=== PATIENT | female | born 1995 | race Caucasian/White ===

== ENCOUNTER 2017-12-02 17:26 | Emergency (ER) | payer SELFPAY ==
[~2017-12-02] VITALS: Ht 149.9 cm; Wt 45.9 kg
[2017-12-02 17:30] VITALS: BP 111/58; TEMP 98
[2017-12-02 18:05] LABS: COLLECTION METHOD CLEAN CATCH
[2017-12-02] MEDS ORDERED: ZOFRAN 4MG T4 MG/TAB PO (18:05)
[2017-12-02 18:09] LABS: BASO % 0.4 % (0.0-2.0); EOS # 0.1 (0.0-0.7); EOS % 1.3 % (0-4.0); GRAN # 2.5 (1.4-6.5); GRAN % 45.6 % (42.2-75.2); HEMATOCRIT 37.5 % (37.0-47.0); LYMPH # 2.4 (1.2-3.4); LYMPH % 43.6 % (20.0-51.0); MEAN CELL VOLUME 88 fl (80.0-100.0); MEAN CORPUSCULAR HEMOGLOBIN 27 pg (27.0-31.0); MEAN CORPUSCULAR HGB CONC 31 g/dl (33.0-37.0); MEAN PLATELET VOLUME 11.7 fl (7.4-10.4); MONO # 0.5 (0.1-0.6); MONO % 8.7 % (1.7-9.3); PLATELET COUNT 235 K/mm3 (130-400); RED BLOOD COUNT 4.26 M/mm3 (4.10-5.30); REDCELL DISTRIBUTION WIDTH-CV 14.3 % (11.5-14.5)
[2017-12-02 18:13] LABS: HEMOGLOBIN 11.6 g/dl (12.5-16.0)
[2017-12-02 18:15] LABS: MUCOUS Present /lpf; PH 5 (5-8); SQUAMOUS EPITHELIAL 0-2 /hpf; URINE APPEARANCE Clear; URINE BACTERIA None Seen /hpf; URINE BILIRUBIN Negative (NEGATIVE); URINE BLOOD Negative (NEGATIVE); URINE COLOR Yellow; URINE GLUCOSE Negative (NEGATIVE); URINE KETONE Negative (NEGATIVE); URINE LEUKOCYTE ESTERASE Negative (NEGATIVE); URINE NITRATE Negative (NEGATIVE); URINE PROTEIN(semi-quant) Negative (NEGATIVE); URINE RBC None Seen /hpf
[2017-12-02 18:18] LABS: CALCIUM 8.8 mg/dL (8.4-10.2); CREATININE, serum 0.64 mg/dL (0.52-1.25); POTASSIUM 4.1 mmol/L (3.4-5.0)
[2017-12-02 18:30] VITALS: PULSE 76
== END 2017-12-02 18:31 | disposition home or self-care (01) ==
LOC: COL.ER 17:26
PROVIDERS: Emergency Medicine
DX: R10.2 Pelvic and perineal pain (principal)

== ENCOUNTER 2018-01-07 01:18 | Emergency (ER) | payer SELFPAY ==
[~2018-01-07] VITALS: Ht 124.5 cm; Wt 47.7 kg
[~2018-01-07 01:18] MED LIST: ZOFRAN 4MG T4 MG/TAB PO
[2018-01-07 01:27] VITALS: BP 108/61; TEMP 98.2
[2018-01-07 02:40] VITALS: PULSE 94
== END 2018-01-07 02:40 | disposition home or self-care (01) ==
LOC: COL.ER 01:18
DX: S61.511A Laceration without foreign body of right wrist, initial encounter (principal); F17.210 Nicotine dependence, cigarettes, uncomplicated; W22.8XXA Striking against or struck by other objects, initial encounter

== ENCOUNTER 2018-04-10 18:05 | Emergency (ER) | payer SELFPAY ==
[~2018-04-10] VITALS: Ht 152.4 cm; Wt 46.8 kg
[2018-04-10 18:08] VITALS: BP 107/55; TEMP 98.3
[2018-04-10] MEDS ORDERED: MULTIPLE VITAMI1 CAP PO (18:14)
[2018-04-10] MEDS ORDERED: PRENATAL (18:14)
[2018-04-10 19:43] VITALS: PULSE 94
== END 2018-04-10 19:43 | disposition home or self-care (01) ==
LOC: COL.ER 18:05
DX: S60.221A Contusion of right hand, initial encounter (principal); W22.01XA Walked into wall, initial encounter; Y92.009 Unspecified place in unspecified non-institutional (private) residence as the place of occurrence of the external cause

== ENCOUNTER 2018-07-18 16:47 | Outpatient (CLI) | payer SELFPAY ==
[~2018-07-18] VITALS: Ht 152.4 cm; Wt 52.3 kg
[2018-07-18 16:42] VITALS: BP 96/54; PULSE 126; TEMP 98.2
[~2018-07-18 16:47] MED LIST changes: +MULTIPLE VITAMI1 CAP PO; +PRENATAL
[2018-07-18 16:50] VITALS: BP 96/54; PULSE 126; TEMP 98.2
[2018-07-18 17:29] LABS: COLLECTION METHOD CLEAN CATCH
[2018-07-18 17:40] VITALS: BP 101/59; PULSE 107
[2018-07-18 17:40] LABS: MUCOUS Present /lpf; PH 6 (5-8); URINE APPEARANCE Hazy; URINE BACTERIA Rare /hpf; URINE BILIRUBIN Negative (NEGATIVE); URINE BLOOD Negative (NEGATIVE); URINE COLOR Yellow; URINE GLUCOSE Negative (NEGATIVE); URINE KETONE Negative (NEGATIVE); URINE LEUKOCYTE ESTERASE 2+ (NEGATIVE); URINE NITRATE Negative (NEGATIVE); URINE PROTEIN(semi-quant) 1+ (NEGATIVE); URINE RBC 0-2 /hpf; URINE UROBILINOGEN >=4.0 mg/dL (NEGATIVE)
[2018-07-18 17:54] VITALS: BP 100/59; PULSE 96
== END 2018-07-18 18:00 | disposition home or self-care (01) ==
LOC: LDRO 16:47 → LDR 16:50 → LDRO 18:00
PROVIDERS: Obstetrics & Gynecology
DX: O26.852 Spotting complicating pregnancy, second trimester (principal); O26.892 Other specified pregnancy related conditions, second trimester; R25.2 Cramp and spasm; Z3A.25 25 weeks gestation of pregnancy
CPT/HCPCS: OP

== ENCOUNTER 2018-08-06 20:21 | Outpatient (CLI) | payer SELFPAY ==
[~2018-08-06] VITALS: Ht 152.4 cm; Wt 50.0 kg
[2018-08-06 21:00] VITALS: BP 104/58; PULSE 96; TEMP 98.6
[2018-08-06 21:30] VITALS: BP 105/63; PULSE 84
[2018-08-06 21:53] LABS: COLLECTION METHOD CLEAN CATCH
[2018-08-06 21:59] LABS: MUCOUS Present /lpf; PH 6 (5-8); SQUAMOUS EPITHELIAL 0-2 /hpf; URINE APPEARANCE Clear; URINE BACTERIA None Seen /hpf; URINE BILIRUBIN Negative (NEGATIVE); URINE BLOOD Negative (NEGATIVE); URINE COLOR Yellow; URINE GLUCOSE Negative (NEGATIVE); URINE KETONE Negative (NEGATIVE); URINE LEUKOCYTE ESTERASE Negative (NEGATIVE); URINE NITRATE Negative (NEGATIVE); URINE PROTEIN(semi-quant) Negative (NEGATIVE); URINE RBC None Seen /hpf; URINE UROBILINOGEN >=4.0 mg/dL (NEGATIVE); URINE WBC 0-2 /hpf
== END 2018-08-06 22:42 | disposition home or self-care (01) ==
LOC: LDRO 20:21
PROVIDERS: Obstetrics & Gynecology
DX: O26.893 Other specified pregnancy related conditions, third trimester (principal); R25.2 Cramp and spasm; Z3A.29 29 weeks gestation of pregnancy

== ENCOUNTER 2018-09-30 16:11 | Outpatient (CLI) | payer SELFPAY ==
[~2018-09-30] VITALS: Ht 152.4 cm; Wt 56.4 kg
[2018-09-30 16:19] VITALS: TEMP 98.1
[2018-09-30 16:25] VITALS: BP 109/63; PULSE 113; TEMP 98.1
--- NOTE | 2018-09-30 16:37 | NUR ---
1620 PATIENT HERE FOR COMPLAINTS OF LOW ABD DISCOMFORT. EFM ON FHT 130 BABY VERY ACTIVE. AND ACCELERATIONS NOTED. NO CONTRACTIONS ON MONITOR OR FELT BY PATIENT, OR PALPATED. SVE /-2. DR HANKS CALLED AND UPDATED ON ALL ABOVE INFORMATION. ORDERS TO DISMISS PATIENT TO HOME IF NO CONTRACTIONS AND REACTIVE FHT.
[2018-09-30 16:52] VITALS: BP 102/61; PULSE 111
--- NOTE | 2018-09-30 16:53 | NUR ---
1057 DR HANKS VIEWED STRIP ORDERS TO DISMISS PATIENT TO HOME. ORDERS TO NOT DO SVE. ALL DISCHARGE INSTRUCTIONS GIVENT TO PATIENT AND MOTHER, VERBAL UNDERSTANDING NOTED. DENIES NEEDS AT THIS TIME.
== END 2018-09-30 16:57 | disposition home or self-care (01) ==
LOC: LDRO 16:11 → LDR 16:20 → LDRO 16:57
DX: O62.9 Abnormality of forces of labor, unspecified (principal); Z3A.37 37 weeks gestation of pregnancy
CPT/HCPCS: OP

== ENCOUNTER 2018-10-04 16:17 | Inpatient (IN) | payer OTHER ==
[~2018-10-04] VITALS: Ht 152.4 cm; Wt 57.3 kg
[2018-10-04] VITALS (16 sets, daily range): BP systolic 102–129; BP diastolic 60–89; PULSE 92–130; TEMP 97.8–98.6
--- NOTE | 2018-10-04 17:00 | NUR ---
1630- Patient presents to unit with complatins on contractions, accompained by her sister. Patient reports her water broke at 1600. Patient does not doctor here. Prenatals requested from physician in [place], patient signed consent. Assesment completed to best knowledge of patient. Amniotrace completed and noted postive. SVE completed and noted /-2. Patient tolerated check. WIll notify physician of arrival on unit, and prepare for admissioni. 1700- Patient admitted Iv started in left hand by Sky Milton RN labs obtained.
[2018-10-04 17:12] LABS: BASO % 0.3 % (0.0-2.0); EOS # 0.1 (0.0-0.7); EOS % 0.6 % (0-4.0); GRAN # 7.3 (1.4-6.5); GRAN % 70.9 % (42.2-75.2); LYMPH # 1.6 (1.2-3.4); LYMPH % 15.7 % (20.0-51.0); MEAN CELL VOLUME 80 fl (80.0-100.0); MEAN CORPUSCULAR HGB CONC 30 g/dl (33.0-37.0); MEAN PLATELET VOLUME 13.3 fl (7.4-10.4); MONO # 1.2 (0.1-0.6); PLATELET COUNT 175 K/mm3 (130-400); RED BLOOD COUNT 4.01 M/mm3 (4.10-5.30); REDCELL DISTRIBUTION WIDTH-CV 17.5 % (11.5-14.5)
[2018-10-04 17:13] LABS: HEMOGLOBIN 9.7 g/dl (12.5-16.0); MEAN CORPUSCULAR HEMOGLOBIN 24 pg (27.0-31.0)
[2018-10-04 17:52] LABS: COLLECTION METHOD CLEAN CATCH
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
[2018-10-04 18:10] LABS: MUCOUS Present /lpf; PH 7 (5-8); URINE APPEARANCE Clear; URINE BACTERIA None Seen /hpf; URINE BILIRUBIN Negative (NEGATIVE); URINE BLOOD Negative (NEGATIVE); URINE COLOR Yellow; URINE GLUCOSE Negative (NEGATIVE); URINE KETONE Negative (NEGATIVE); URINE LEUKOCYTE ESTERASE Trace (NEGATIVE); URINE NITRATE Negative (NEGATIVE); URINE PROTEIN(semi-quant) Negative (NEGATIVE); URINE RBC 0-2 /hpf; URINE UROBILINOGEN >=4.0 mg/dL (NEGATIVE)
[2018-10-04 18:12] LABS: TRICYCLIC ANTIDEPRESS URINE NEGATIVE
--- NOTE | 2018-10-04 18:20 | NUR ---
Report received from NANCY Oreilly. 184: Shen inserted at this time. Pale yellow/clear urine return noted. at bedside SVE 5//-2 per provider. Forebag ruptured with amniohook by with large amount of clear amniotic fluid noted. Pericare provided and pads changed. to remain at nurse's station. Pt repositioned to wedge right position per request. Plan of care explained to pt and educated to let us know if she is starting to feel pressure. Pt verbalizes understanding. 1903: Pt called out stating she was feeling more pressure. SVE 790/0. on unit and updated on SVE and pt feeling pressure. 1912: Pt called out stating she is feeling more pressure. SVE C/+2. at nurse's station and requested for delivery. 1914: at bedside for delivery and pt assisted into footplates. Pt educated to push with next contraction per provider. 1919: Pt pushes with one contraction with spontaneous vaginal delivery of viable female by . to mothers chest where dried and stimulated by nursery RN. Pitocin stopped. Cord clamped X2 and cut by FOB. Care of infant assumed by Sofía CRUZ. 1923: Spontaneous delivery of intact placenta by . Pitocin restarted at 333mus/hr per protocol. Perineum intact. Fundal message by this RN with large clot noted, fundus firm, midline and bleeding minimal. updated on bleeding. Pericare provided, pads changed and ice pack applied. Pt able to reposition self in bed. Epidural catheter removed and bandaid applied. No signs of infection or inflammation noted. Plan of care and safety precautions explained to pt and family who verbalize understanding. Cord stat sent to lab. Call light within reach. Will continue to monitor.
--- NOTE | 2018-10-04 22:00 | NUR ---
Pt ablt to hold legs up bilaterally for 5 seconds and states she needs to use the restroom. Fundus firm, midline and bleeding minimal. Pt assisted to edge of bed. Denies lightheadedness or dizziness. Pt ambulatory to bathroom, standby assist. Pt able to void. Pericare provided. Meshpanties, pad and ice pack applied. Pt ambulatory to room 215 standby assist. Pt and family oriented to room. Call light within reach. Will continue to monitor.
[2018-10-05] VITALS: BP 103/55; PULSE 82; TEMP 98.8
[2018-10-05 05:15] VITALS: BP 111/69; PULSE 77; TEMP 98.2
[2018-10-05 08:00] VITALS: BP 109/69; PULSE 97; TEMP 98.1
[2018-10-05] MEDS ORDERED: PERCOCET 325 MG1 TA2 PO (09:33)
[2018-10-05] MEDS ORDERED: IBU600 MG PO (09:33)
[2018-10-05 12:00] VITALS: BP 90/49; PULSE 83; TEMP 98.5
--- NOTE | 2018-10-05 14:53 | NUR ---
RUDOLPH and SW student met with patient, her sister, and baby posch. Patient lives in [place] with her sister. She reports she quit her job at [employer]. Patient did not have any known positive UA's during and was negative at for any substances. Patient reports the babys father is involved when he wants to be but not active in her life. She has a car seat in the room with her and has wi services in place. Finance has met with her and given her the packet for medicaid. Patient has 4 other daughters, 3 of which have been adopted by other family members. She has custody of her 2 year old and this child. Patient has a correction officer supervisor that she is in contact with currently and reports she spoke to them today. RUDOLPH provided a resource packet to patient and talked with her about daycare assistance and food stamps. Patient plans on applying for food stamps. RUDOLPH will follow for cord blood results. No other concerns at this time.
[2018-10-05 16:20] VITALS: BP 100/56; PULSE 88; TEMP 97.6
[2018-10-05 23:25] VITALS: BP 100/61; PULSE 92; TEMP 97.6
[2018-10-06 07:00] VITALS: BP 102/66; PULSE 79; TEMP 97.6
--- NOTE | 2018-10-06 09:32 | NUR ---
Initial visit; Mom thanked Turbine Assembler for offering congratulations and God's blessings for the of her daughter. Turbine Assembler thanked family for choosing [facility].
--- NOTE | 2018-10-07 09:45 | NUR ---
Babys cord blood came back negative
== END 2018-10-06 15:30 | disposition home or self-care (01) | DRG 807 ==
LOC: LDRO 16:17 → LDR 16:44 → OB 22:35
PROVIDERS: ADMIT Obstetrics & Gynecology
PROC: 10E0XZZ Delivery of Products of Conception, External Approach (ICD-10-PCS; principal; 2018-10-04)
DX: O42.02 Full-term premature rupture of membranes, onset of labor within 24 hours of rupture (principal); Z37.0 Single live birth; Z3A.37 37 weeks gestation of pregnancy; O99.824 Streptococcus B carrier state complicating childbirth; J45.909 Unspecified asthma, uncomplicated; Z87.891 Personal history of nicotine dependence; Z28.21 Immunization not carried out because of patient refusal
CPT/HCPCS: J2540; J2590; J2795; J7120

== ENCOUNTER → 2018-10-21 | Outpatient (CLI) | payer OTHER ==
[~2018-10-21] MED LIST changes: +IBU600 MG PO; +PERCOCET 325 MG1 TA2 PO
== END ==
LOC: COL.RAD 15:25
DX: K59.00 Constipation, unspecified (principal)

== ENCOUNTER 2018-12-12 11:36 | Emergency (ER) | payer OTHER ==
[~2018-12-12] VITALS: Ht 152.4 cm; Wt 48.4 kg
[2018-12-12 11:38] VITALS: BP 116/61; TEMP 98.5
[2018-12-12] MEDS ORDERED: NORCO 325 MG-51 TAB PO (12:12)
[2018-12-12 12:28] VITALS: PULSE 76
== END 2018-12-12 12:48 | disposition home or self-care (01) ==
LOC: COL.ER 11:36
DX: M25.511 Pain in right shoulder (principal)

== ENCOUNTER → 2019-01-09 | Outpatient (CLI) | payer SELFPAY ==
[~2019-01-09] MED LIST changes: +NORCO 325 MG-51 TAB PO
== END ==
LOC: ZCOL.LAB 16:27
DX: J02.9 Acute pharyngitis, unspecified (principal)

== ENCOUNTER 2019-01-25 22:45 | Emergency (ER) | payer SELFPAY ==
[~2019-01-25] VITALS: Ht 152.4 cm; Wt 52.3 kg
[2019-01-25 22:57] VITALS: BP 123/58; PULSE 89; TEMP 98.7
== END 2019-01-25 23:45 | disposition home or self-care (01) ==
LOC: COL.ER 22:45
DX: S30.92XA Unspecified superficial injury of abdominal wall, initial encounter (principal); J45.909 Unspecified asthma, uncomplicated; F17.210 Nicotine dependence, cigarettes, uncomplicated; Y28.8XXA Contact with other sharp object, undetermined intent, initial encounter

== ENCOUNTER 2019-02-03 17:56 | Emergency (ER) | payer SELFPAY ==
[~2019-02-03] VITALS: Ht 152.4 cm; Wt 47.7 kg
[~2019-02-03 17:56] MED LIST changes: +LEXAPRO 10MG10 MG PO
[2019-02-03 18:03] VITALS: PULSE 73; TEMP 98.2
[2019-02-03 18:15] LABS: COLLECTION METHOD CLEAN CATCH
[2019-02-03 18:21] LABS: MUCOUS Present /lpf; PH 7 (5-8); SQUAMOUS EPITHELIAL None Seen /hpf; URINE APPEARANCE Clear; URINE BACTERIA Rare /hpf; URINE BILIRUBIN Negative (NEGATIVE); URINE BLOOD Negative (NEGATIVE); URINE COLOR Yellow; URINE GLUCOSE Negative (NEGATIVE); URINE KETONE Negative (NEGATIVE); URINE LEUKOCYTE ESTERASE Negative (NEGATIVE); URINE NITRATE Negative (NEGATIVE); URINE PROTEIN(semi-quant) Negative (NEGATIVE); URINE RBC 0-2 /hpf
[2019-02-03 19:59] VITALS: BP 124/65
== END 2019-02-03 19:59 | disposition home or self-care (01) ==
LOC: COL.ER 17:56
PROVIDERS: Emergency Medicine
DX: O99.350 Diseases of the nervous system complicating pregnancy, unspecified trimester (principal); O99.330 Smoking (tobacco) complicating pregnancy, unspecified trimester; O20.0 Threatened abortion; F17.210 Nicotine dependence, cigarettes, uncomplicated; F32.9 Major depressive disorder, single episode, unspecified; Z3A.00 Weeks of gestation of pregnancy not specified

== ENCOUNTER 2019-02-23 16:59 | Emergency (ER) | payer SELFPAY ==
[~2019-02-23] VITALS: Ht 149.9 cm; Wt 50.0 kg
[2019-02-23 17:22] VITALS: TEMP 99.1
[2019-02-23 18:26] LABS: BASO % 0.2 % (0.0-2.0); EOS # 0.1 (0.0-0.7); EOS % 1.5 % (0-4.0); GRAN % 42.1 % (42.2-75.2); HEMOGLOBIN 11.5 g/dl (12.5-16.0); LYMPH # 2.3 (1.2-3.4); MEAN CELL VOLUME 85 fl (80.0-100.0); MEAN CORPUSCULAR HEMOGLOBIN 27 pg (27.0-31.0); MEAN CORPUSCULAR HGB CONC 33 g/dl (33.0-37.0); MEAN PLATELET VOLUME 12.1 fl (7.4-10.4); MONO # 0.3 (0.1-0.6); PLATELET COUNT 223 K/mm3 (130-400); RED BLOOD COUNT 4.19 M/mm3 (4.10-5.30); REDCELL DISTRIBUTION WIDTH-CV 14.4 % (11.5-14.5)
[2019-02-23 18:37] LABS: HEMATOCRIT 35.4 % (37.0-47.0)
[2019-02-23 18:51] LABS: COLLECTION METHOD CLEAN CATCH
[2019-02-23 19:41] LABS: MUCOUS Present /lpf; PH 7 (5-8); SQUAMOUS EPITHELIAL 0-2 /hpf; URINE APPEARANCE Clear; URINE BACTERIA None Seen /hpf; URINE BILIRUBIN Negative (NEGATIVE); URINE BLOOD Negative (NEGATIVE); URINE COLOR Yellow; URINE GLUCOSE Negative (NEGATIVE); URINE KETONE Negative (NEGATIVE); URINE LEUKOCYTE ESTERASE Negative (NEGATIVE); URINE NITRATE Negative (NEGATIVE); URINE PROTEIN(semi-quant) Negative (NEGATIVE); URINE RBC 0-2 /hpf
[2019-02-23 20:21] VITALS: BP 104/58; PULSE 96
[2019-02-24] MEDS ORDERED: ZITHROMAX500 M2 PO (03:48)
== END 2019-02-23 20:21 | disposition home or self-care (01) ==
LOC: COL.ER 16:59
PROVIDERS: Emergency Medicine
DX: O26.899 Other specified pregnancy related conditions, unspecified trimester (principal); R10.2 Pelvic and perineal pain; Z3A.00 Weeks of gestation of pregnancy not specified

== ENCOUNTER 2019-03-02 19:14 | Emergency (ER) | payer SELFPAY ==
[~2019-03-02] VITALS: Ht 152.4 cm; Wt 50.0 kg
[~2019-03-02 19:14] MED LIST changes: +ZITHROMAX500 M2 PO
[2019-03-02 19:24] VITALS: TEMP 98.2
[2019-03-02 20:33] LABS: BASO % 0.2 % (0.0-2.0); EOS # 0.1 (0.0-0.7); EOS % 1.4 % (0-4.0); GRAN # 2.2 (1.4-6.5); GRAN % 51.9 % (42.2-75.2); LYMPH # 1.6 (1.2-3.4); LYMPH % 37.7 % (20.0-51.0); MEAN CELL VOLUME 86 fl (80.0-100.0); MEAN CORPUSCULAR HEMOGLOBIN 27 pg (27.0-31.0); MEAN CORPUSCULAR HGB CONC 31 g/dl (33.0-37.0); MEAN PLATELET VOLUME 12.1 fl (7.4-10.4); MONO # 0.4 (0.1-0.6); MONO % 8.6 % (1.7-9.3); PLATELET COUNT 202 K/mm3 (130-400); REDCELL DISTRIBUTION WIDTH-CV 13.9 % (11.5-14.5)
[2019-03-02 20:36] LABS: HEMATOCRIT 35.3 % (37.0-47.0)
[2019-03-02 21:39] LABS: COLLECTION METHOD CLEAN CATCH
[2019-03-02 21:51] LABS: MUCOUS Present /lpf; PH 7 (5-8); SQUAMOUS EPITHELIAL 0-2 /hpf; URINE APPEARANCE Hazy; URINE BACTERIA None Seen /hpf; URINE BILIRUBIN Negative (NEGATIVE); URINE BLOOD Negative (NEGATIVE); URINE COLOR Yellow; URINE GLUCOSE Negative (NEGATIVE); URINE KETONE Negative (NEGATIVE); URINE LEUKOCYTE ESTERASE Negative (NEGATIVE); URINE NITRATE Negative (NEGATIVE); URINE PROTEIN(semi-quant) Negative (NEGATIVE); URINE RBC 0-2 /hpf
[2019-03-02 22:35] VITALS: BP 110/84; PULSE 80
== END 2019-03-02 22:35 | disposition home or self-care (01) ==
LOC: COL.ER 19:14
PROVIDERS: Nurse Practitioner
DX: O46.91 Antepartum hemorrhage, unspecified, first trimester (principal); F32.9 Major depressive disorder, single episode, unspecified; F41.9 Anxiety disorder, unspecified; J45.909 Unspecified asthma, uncomplicated; Z3A.01 Less than 8 weeks gestation of pregnancy

== ENCOUNTER 2019-03-15 12:38 | Emergency (ER) | payer SELFPAY ==
[~2019-03-15] VITALS: Ht 152.4 cm; Wt 48.7 kg
[2019-03-15 12:58] VITALS: BP 105/57; PULSE 100; TEMP 98.6
[2019-03-15 16:26] LABS: BASO % 0.2 % (0.0-2.0); EOS # 0.1 (0.0-0.7); EOS % 0.8 % (0-4.0); GRAN % 65.2 % (42.2-75.2); HEMOGLOBIN 11.7 g/dl (12.5-16.0); LYMPH # 1.6 (1.2-3.4); LYMPH % 26.3 % (20.0-51.0); MEAN CELL VOLUME 84 fl (80.0-100.0); MEAN CORPUSCULAR HEMOGLOBIN 27 pg (27.0-31.0); MEAN CORPUSCULAR HGB CONC 32 g/dl (33.0-37.0); MEAN PLATELET VOLUME 11.7 fl (7.4-10.4); MONO # 0.4 (0.1-0.6); PLATELET COUNT 226 K/mm3 (130-400); RED BLOOD COUNT 4.34 M/mm3 (4.10-5.30); REDCELL DISTRIBUTION WIDTH-CV 14.1 % (11.5-14.5)
[2019-03-15 16:30] LABS: HEMATOCRIT 36.3 % (37.0-47.0)
[2019-03-15 16:38] LABS: COLLECTION METHOD CLEAN CATCH
[2019-03-15 16:38] LABS: ALBUMIN 3.9 gm/dL (3.5-5.0); BILIRUBIN,TOTAL 0.4 mg/dL (0.0-1.0); CALCIUM 8.8 mg/dL (8.4-10.2); CREATININE, serum 0.4 (0.52-1.25); POTASSIUM 3.7 mmol/L (3.4-5.0); TOTAL PROTEIN 7.4 gm/dL (6.4-8.2)
[2019-03-15 16:44] LABS: MUCOUS Present /lpf; PH 8 (5-8); URINE APPEARANCE Clear; URINE BACTERIA Rare /hpf; URINE BILIRUBIN Negative (NEGATIVE); URINE BLOOD Negative (NEGATIVE); URINE COLOR Yellow; URINE GLUCOSE Negative (NEGATIVE); URINE KETONE Negative (NEGATIVE); URINE LEUKOCYTE ESTERASE Negative (NEGATIVE); URINE NITRATE Negative (NEGATIVE); URINE PROTEIN(semi-quant) Negative (NEGATIVE); URINE RBC 0-2 /hpf
== END 2019-03-15 17:09 | disposition home or self-care (01) ==
LOC: COL.ER 12:38
PROVIDERS: Physician Assistant
DX: O9A.211 Injury, poisoning and certain other consequences of external causes complicating pregnancy, first trimester (principal); S39.91XA Unspecified injury of abdomen, initial encounter; Z3A.08 8 weeks gestation of pregnancy; Z87.891 Personal history of nicotine dependence; Z98.890 Other specified postprocedural states

== ENCOUNTER 2019-03-27 11:17 | Emergency (ER) | payer SELFPAY ==
[~2019-03-27] VITALS: Ht 152.4 cm; Wt 46.8 kg
[2019-03-27 11:24] VITALS: TEMP 98.9
[2019-03-27 12:05] LABS: BASO % 0.2 % (0.0-2.0); EOS # 0.1 (0.0-0.7); EOS % 1.7 % (0-4.0); GRAN # 2.2 (1.4-6.5); GRAN % 53.6 % (42.2-75.2); HEMOGLOBIN 11.6 g/dl (12.5-16.0); LYMPH # 1.4 (1.2-3.4); LYMPH % 33.5 % (20.0-51.0); MEAN CELL VOLUME 84 fl (80.0-100.0); MEAN CORPUSCULAR HEMOGLOBIN 27 pg (27.0-31.0); MEAN CORPUSCULAR HGB CONC 32 g/dl (33.0-37.0); MEAN PLATELET VOLUME 11.6 fl (7.4-10.4); MONO # 0.5 (0.1-0.6); MONO % 10.8 % (1.7-9.3); PLATELET COUNT 221 K/mm3 (130-400); RED BLOOD COUNT 4.32 M/mm3 (4.10-5.30); REDCELL DISTRIBUTION WIDTH-CV 14.3 % (11.5-14.5)
[2019-03-27 12:07] LABS: HEMATOCRIT 36.4 % (37.0-47.0)
[2019-03-27 12:22] LABS: COLLECTION METHOD CLEAN CATCH
[2019-03-27 12:26] LABS: ALBUMIN 3.7 gm/dL (3.5-5.0); BILIRUBIN,TOTAL 0.4 mg/dL (0.0-1.0); CALCIUM 9.1 mg/dL (8.4-10.2); CREATININE, serum 0.46 (0.52-1.25); TOTAL PROTEIN 7.1 gm/dL (6.4-8.2)
[2019-03-27 12:27] LABS: C-REACTIVE PROTEIN 0.5 mg/dL (0.0-0.9)
[2019-03-27 12:44] LABS: MUCOUS Present /lpf; PH 6 (5-8); URINE APPEARANCE Hazy; URINE BACTERIA None Seen /hpf; URINE BILIRUBIN Negative (NEGATIVE); URINE BLOOD Negative (NEGATIVE); URINE COLOR Yellow; URINE GLUCOSE Negative (NEGATIVE); URINE KETONE Negative (NEGATIVE); URINE LEUKOCYTE ESTERASE Negative (NEGATIVE); URINE NITRATE Negative (NEGATIVE); URINE PROTEIN(semi-quant) Negative (NEGATIVE); URINE RBC 0-2 /hpf; URINE UROBILINOGEN Negative (NEGATIVE)
[2019-03-27 13:01] VITALS: BP 106/69; PULSE 75
== END 2019-03-27 13:07 | disposition home or self-care (01) ==
LOC: COL.ER 11:17
PROVIDERS: Family Medicine
DX: O99.611 Diseases of the digestive system complicating pregnancy, first trimester (principal); K52.9 Noninfective gastroenteritis and colitis, unspecified; Z3A.01 Less than 8 weeks gestation of pregnancy
CPT/HCPCS: J2550; J7030

== ENCOUNTER 2019-04-22 14:52 | Emergency (ER) | payer SELFPAY ==
[~2019-04-22] VITALS: Ht 152.4 cm; Wt 50.0 kg
[2019-04-22 15:23] VITALS: BP 107/60; TEMP 98.1
[2019-04-22] MEDS ORDERED: PRENATAL MVI PO (15:29)
[2019-04-22] MEDS ORDERED: ELIMITE TOP (16:27)
[2019-04-22 16:39] VITALS: PULSE 79
== END 2019-04-22 16:40 | disposition home or self-care (01) ==
LOC: COL.ER 14:52
DX: B86 Scabies (principal)

== ENCOUNTER 2019-04-27 14:44 | Emergency (ER) | payer SELFPAY ==
[~2019-04-27] VITALS: Ht 152.4 cm; Wt 52.3 kg
[~2019-04-27 14:44] MED LIST changes: +ELIMITE TOP; +PRENATAL MVI PO
[2019-04-27 14:50] VITALS: BP 11/59; TEMP 98.7
[2019-04-27] MEDS ORDERED: NORCO 325 MG-51 TAB PO (16:23)
[2019-04-27 16:30] VITALS: PULSE 94
== END 2019-04-27 16:30 | disposition home or self-care (01) ==
LOC: COL.ER 14:44
DX: S43.401A Unspecified sprain of right shoulder joint, initial encounter (principal); F32.9 Major depressive disorder, single episode, unspecified; Z87.891 Personal history of nicotine dependence; Y04.0XXA Assault by unarmed brawl or fight, initial encounter

== ENCOUNTER 2019-05-10 16:09 | Emergency (ER) | payer SELFPAY ==
[~2019-05-10] VITALS: Ht 152.4 cm; Wt 52.8 kg
[2019-05-10 16:14] VITALS: TEMP 98.6
[2019-05-10 17:18] LABS: COLLECTION METHOD CLEAN CATCH
[2019-05-10 17:21] LABS: BASO % 0.3 % (0.0-2.0); EOS # 0.1 (0.0-0.7); EOS % 1.1 % (0-4.0); GRAN # 4.2 (1.4-6.5); GRAN % 62.8 % (42.2-75.2); HEMOGLOBIN 10.1 g/dl (12.5-16.0); LYMPH # 1.8 (1.2-3.4); LYMPH % 27.3 % (20.0-51.0); MEAN CELL VOLUME 84 fl (80.0-100.0); MEAN CORPUSCULAR HEMOGLOBIN 27 pg (27.0-31.0); MEAN CORPUSCULAR HGB CONC 32 g/dl (33.0-37.0); MEAN PLATELET VOLUME 12.5 fl (7.4-10.4); MONO # 0.5 (0.1-0.6); PLATELET COUNT 183 K/mm3 (130-400); RED BLOOD COUNT 3.77 M/mm3 (4.10-5.30); REDCELL DISTRIBUTION WIDTH-CV 13.6 % (11.5-14.5)
[2019-05-10 17:25] LABS: MUCOUS Present /lpf; PH 5 (5-8); URINE APPEARANCE Clear; URINE BACTERIA None Seen /hpf; URINE BILIRUBIN Negative (NEGATIVE); URINE BLOOD Negative (NEGATIVE); URINE COLOR Yellow; URINE GLUCOSE Negative (NEGATIVE); URINE KETONE Negative (NEGATIVE); URINE LEUKOCYTE ESTERASE Negative (NEGATIVE); URINE NITRATE Negative (NEGATIVE); URINE PROTEIN(semi-quant) Negative (NEGATIVE); URINE RBC 0-2 /hpf
[2019-05-10 17:31] LABS: ALBUMIN 3.5 gm/dL (3.5-5.0); BILIRUBIN,TOTAL 0.1 mg/dL (0.0-1.0); CALCIUM 8.7 mg/dL (8.4-10.2); CREATININE, serum 0.51 (0.52-1.25); POTASSIUM 3.9 mmol/L (3.4-5.0); TOTAL PROTEIN 6.6 gm/dL (6.4-8.2)
[2019-05-10 17:53] LABS: HEMATOCRIT 31.7 % (37.0-47.0)
[2019-05-10 19:16] VITALS: BP 126/78; PULSE 71
== END 2019-05-10 19:18 | disposition home or self-care (01) ==
LOC: COL.ER 16:09
PROVIDERS: Nurse Practitioner Primary Care
DX: O46.92 Antepartum hemorrhage, unspecified, second trimester (principal); Z3A.17 17 weeks gestation of pregnancy

== ENCOUNTER 2019-06-01 22:29 | Outpatient (CLI) | payer MEDICAID ==
[~2019-06-01] VITALS: Ht 152.4 cm; Wt 52.3 kg
[2019-06-01] VITALS: BP 107/60; PULSE 82; TEMP 98.5
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
[2019-06-02] VITALS: BP 107/60; PULSE 82; TEMP 98.5
[2019-06-02 00:35] LABS: COLLECTION METHOD CATHETER
[2019-06-02 00:44] LABS: BASO % 0.3 % (0.0-2.0); EOS # 0.1 (0.0-0.7); EOS % 1.2 % (0-4.0); GRAN # 3.9 (1.4-6.5); GRAN % 61.2 % (42.2-75.2); LYMPH # 1.9 (1.2-3.4); MEAN CELL VOLUME 84 fl (80.0-100.0); MEAN CORPUSCULAR HGB CONC 31 g/dl (33.0-37.0); MEAN PLATELET VOLUME 10.8 fl (7.4-10.4); MONO # 0.5 (0.1-0.6); MONO % 7.8 % (1.7-9.3); PLATELET COUNT 183 K/mm3 (130-400); RED BLOOD COUNT 3.69 M/mm3 (4.10-5.30)
[2019-06-02 00:47] LABS: HEMATOCRIT 31.1 % (37.0-47.0); HEMOGLOBIN 9.6 g/dl (12.5-16.0); MEAN CORPUSCULAR HEMOGLOBIN 26 pg (27.0-31.0)
[2019-06-02 00:49] LABS: TRICYCLIC ANTIDEPRESS URINE NEGATIVE
[2019-06-02 00:58] LABS: PH 6 (5-8); URINE APPEARANCE Clear; URINE BACTERIA Rare /hpf; URINE BILIRUBIN Negative (NEGATIVE); URINE BLOOD Negative (NEGATIVE); URINE COLOR Yellow; URINE GLUCOSE Negative (NEGATIVE); URINE KETONE Negative (NEGATIVE); URINE LEUKOCYTE ESTERASE 3+ (NEGATIVE); URINE NITRATE Negative (NEGATIVE); URINE PROTEIN(semi-quant) Negative (NEGATIVE); URINE UROBILINOGEN Negative (NEGATIVE)
[2019-06-02 01:29] LABS: HIV 1/2 Antibodies Non-Reactive; HIV-1p24 Antigen Non-Reactive
--- NOTE | 2019-06-02 02:00 | NUR ---
No contractions noted on toco. No contractions palpated. Pt ok to discharge home at this time. Discharge instructions reviewed with patient. Prescription for Macrobid given to patient. Pt encouraged to establish care with physician in [facility]. Pt seen ambulating off unit independently.
[2019-06-02 16:00] LABS: HEPATITIS B SURFACE ANTIGEN Negative (Negative)
[2019-06-03 22:42] LABS: RPR (VDRL) XXX
== END 2019-06-02 02:00 | disposition home or self-care (01) ==
LOC: COL.ER 22:29 → LDRO 22:29 → COL.ER 23:00 → EDSTATUS 23:44 → LDRO 06-02 02:00
PROVIDERS: Obstetrics & Gynecology
DX: O99.89 Other specified diseases and conditions complicating pregnancy, childbirth and the puerperium (principal); R25.2 Cramp and spasm; R51 Headache; R11.0 Nausea; Z3A.20 20 weeks gestation of pregnancy

== ENCOUNTER 2019-06-14 22:42 | Outpatient (CLI) | payer MEDICAID ==
[~2019-06-14] VITALS: Ht 149.9 cm; Wt 55.5 kg
--- NOTE | 2019-06-14 22:55 | NUR ---
Pt arrived ambulatory on unit with complaints of cramping and spotting earlier this evening. Pt reports she is G6 L4 with due date 10/15/19 seen by provider in [place] at the begining of her and is scheduled at [facility] on 06/23/19 but pt unsure which provider. Pt reports cramping stopped after resting for an hour on her left side and spotting was noted only when she wiped in the bathroom. Pt denies the need for wearing a pad and reports no blood on her panties. Pt reports normal movement and denies any leaking of fluid. EFM and toco monitors started. Vital signs WNL. Spoke with Dr. Yeboah to review pt's complaints, history and FHR doppler. Orders for discharge home received.
[2019-06-14 23:06] VITALS: BP 110/58; PULSE 75; TEMP 98.5
--- NOTE | 2019-06-14 23:35 | NUR ---
Discharge instructions reviewed with pt. Pt verbalized an understanding, agreed with the plan and states no questions or concerns at this time.
== END 2019-06-14 23:47 | disposition home or self-care (01) ==
LOC: LDRO 22:42 → LDR 23:39 → LDRO 23:47
DX: O26.892 Other specified pregnancy related conditions, second trimester (principal); Z3A.28 28 weeks gestation of pregnancy
CPT/HCPCS: OP

== ENCOUNTER 2019-06-29 13:04 | Emergency (ER) | payer MEDICAID ==
[~2019-06-29] VITALS: Ht 152.4 cm; Wt 56.8 kg
--- NOTE | 2019-06-29 14:10 | NUR ---
Patient to LR6 via wheelchair from ED, patient into bed and FHR/TOCO monitors placed. Patient states "have a really bad headache, have been puking, cramping in abdomen, a little bit of pelvic pressure" Patient states she told staff in ED that she "did not think it was related but they brought me up here anyways" Plan of care discussed 1415: SVE-0-1/40/-3 Difficulty tracing FHR and monitor being adjusted.
[2019-06-29] MEDS ORDERED: MOTRIN 200200 MG/TAB PO (14:26)
[2019-06-29] MEDS ORDERED: TYLENOL 500MG500 MG PO (14:26)
[2019-06-29 14:45] VITALS: BP 105/63; PULSE 102
--- NOTE | 2019-06-29 15:12 | NUR ---
Dr. Eisenberg called and updated and orders to send patient back to ED. 1515: Patient off monitor and back to ED via Wheelchair by this RN.
[2019-06-29 15:15] VITALS: PULSE 110
[2019-06-29 16:10] LABS: BASO % 0.3 % (0.0-2.0); EOS % 0.5 % (0-4.0); GRAN % 76.2 % (42.2-75.2); HEMATOCRIT 33.3 % (37.0-47.0); HEMOGLOBIN 10.1 g/dl (12.5-16.0); LYMPH # 1.2 (1.2-3.4); LYMPH % 14.7 % (20.0-51.0); MEAN CELL VOLUME 83 fl (80.0-100.0); MEAN CORPUSCULAR HEMOGLOBIN 25 pg (27.0-31.0); MEAN CORPUSCULAR HGB CONC 30 g/dl (33.0-37.0); MEAN PLATELET VOLUME 11.3 fl (7.4-10.4); MONO # 0.6 (0.1-0.6); MONO % 7.4 % (1.7-9.3); PLATELET COUNT 208 K/mm3 (130-400); RED BLOOD COUNT 4.02 M/mm3 (4.10-5.30)
[2019-06-29 16:21] LABS: ALBUMIN 3.4 gm/dL (3.5-5.0); BILIRUBIN,TOTAL 0.2 mg/dL (0.0-1.0); C-REACTIVE PROTEIN 0.7 mg/dL (0.0-0.9); CALCIUM 7.8 mg/dL (8.4-10.2); CREATININE, serum 0.36 (0.52-1.25); POTASSIUM 3.6 mmol/L (3.4-5.0); TOTAL PROTEIN 6.8 gm/dL (6.4-8.2)
[2019-06-29 17:12] LABS: COLLECTION METHOD CLEAN CATCH
[2019-06-29 17:28] LABS: MUCOUS Present /lpf; PH 6 (5-8); SQUAMOUS EPITHELIAL 0-2 /hpf; URINE APPEARANCE Clear; URINE BACTERIA None Seen /hpf; URINE BILIRUBIN Negative (NEGATIVE); URINE BLOOD Negative (NEGATIVE); URINE COLOR Yellow; URINE GLUCOSE Negative (NEGATIVE); URINE KETONE Negative (NEGATIVE); URINE LEUKOCYTE ESTERASE Negative (NEGATIVE); URINE NITRATE Negative (NEGATIVE); URINE PROTEIN(semi-quant) Negative (NEGATIVE); URINE RBC 0-2 /hpf
[2019-06-29 17:48] VITALS: BP 105/66; PULSE 86; TEMP 98.2
== END 2019-06-29 17:50 | disposition home or self-care (01) ==
LOC: LDRO 13:04 → COL.ER 13:04 → EDSTATUS 14:04 → COL.ER 17:50
PROVIDERS: Emergency Medicine
DX: O26.893 Other specified pregnancy related conditions, third trimester (principal); R51 Headache; Z3A.49 Greater than 42 weeks gestation of pregnancy
CPT/HCPCS: J2550; J3010; J7030

== ENCOUNTER 2019-07-04 20:39 | Outpatient (CLI) | payer MEDICAID ==
[~2019-07-04] VITALS: Ht 152.4 cm; Wt 56.8 kg
[~2019-07-04 20:39] MED LIST changes: +MOTRIN 200200 MG/TAB PO; +TYLENOL 500MG500 MG PO
--- NOTE | 2019-07-04 21:00 | NUR ---
Pt arrived on unit ambulatory and with complaints of back pain. Pt also reports occasional contractions. Pt denies any leaking of fluid or vaginal bleeding and reports normal movement. Pt reports back pain starting around 1930 this evening. EFM and toco monitors started. Audible and palpable movement. FHR difficult to trace with EFM. Able to doppler FHR 145-150. SVE by this RN FT/thick/high. Spoke with Dr. Eisenberg regarding pt's arrival and complaints. history and FHR doppler reviewed. Orders for PO tylenol and ok to keep EFM off received. Plan of care reviewed with pt.
[2019-07-04 22:20] VITALS: BP 102/60; PULSE 92; TEMP 98.4
--- NOTE | 2019-07-04 22:20 | NUR ---
Repeat SVE per Dr. Eisenberg's order with no change noted. Information reviewed with Dr. Eisenberg. Orders for discharge home received. Discharge instructions reviewed with pt and family at the bedside. Pt verbalized an understanding, agreed with the plan and states no questions or concerns at this time.
== END 2019-07-04 22:35 | disposition home or self-care (01) ==
LOC: LDRO 20:39 → COL.ER 20:39 → EDSTATUS 20:50 → LDR 21:34 → LDRO 22:35
DX: O99.89 Other specified diseases and conditions complicating pregnancy, childbirth and the puerperium (principal); M54.9 Dorsalgia, unspecified; Z3A.25 25 weeks gestation of pregnancy
CPT/HCPCS: OP

== ENCOUNTER 2019-07-12 16:19 | Outpatient (CLI) | payer MEDICAID ==
[~2019-07-12] VITALS: Ht 152.4 cm; Wt 60.0 kg
[2019-07-12 17:03] LABS: COLLECTION METHOD CLEAN CATCH
[2019-07-12 17:11] LABS: BASO % 0.2 % (0.0-2.0); EOS % 0.1 % (0-4.0); GRAN # 7.6 (1.4-6.5); GRAN % 86.8 % (42.2-75.2); LYMPH # 0.8 (1.2-3.4); LYMPH % 9.6 % (20.0-51.0); MEAN CELL VOLUME 81 fl (80.0-100.0); MEAN CORPUSCULAR HGB CONC 30 g/dl (33.0-37.0); MEAN PLATELET VOLUME 11.8 fl (7.4-10.4); MONO # 0.2 (0.1-0.6); MONO % 2.3 % (1.7-9.3); PLATELET COUNT 242 K/mm3 (130-400); RED BLOOD COUNT 3.78 M/mm3 (4.10-5.30); REDCELL DISTRIBUTION WIDTH-CV 14.1 % (11.5-14.5)
[2019-07-12 17:12] LABS: HEMATOCRIT 30.7 % (37.0-47.0); HEMOGLOBIN 9.2 g/dl (12.5-16.0); MEAN CORPUSCULAR HEMOGLOBIN 24 pg (27.0-31.0)
[2019-07-12 17:19] LABS: MUCOUS Present /lpf; PH 5 (5-8); SQUAMOUS EPITHELIAL 0-2 /hpf; URINE APPEARANCE Clear; URINE BACTERIA None Seen /hpf; URINE BILIRUBIN Negative (NEGATIVE); URINE BLOOD Negative (NEGATIVE); URINE COLOR Yellow; URINE GLUCOSE 1+ (NEGATIVE); URINE KETONE Negative (NEGATIVE); URINE LEUKOCYTE ESTERASE Trace (NEGATIVE); URINE NITRATE Negative (NEGATIVE); URINE PROTEIN(semi-quant) Negative (NEGATIVE); URINE RBC 0-2 /hpf; URINE UROBILINOGEN Negative (NEGATIVE)
[2019-07-12 17:21] LABS: ALANINE AMINOTRANSFERASE 15 U/L (9-52); ALBUMIN 3.5 gm/dL (3.5-5.0); ALKALINE PHOSPHATASE 65 U/L (50-136); ANION GAP 7 mmol/L (7-16); AST,SGOT 21 U/L (15-37); BILIRUBIN,TOTAL 0.1 mg/dL (0.0-1.0); BLOOD UREA NITROGEN 14 mg/dL (7-17); CALCIUM 9.2 mg/dL (8.4-10.2); CARBON DIOXIDE 21 mmol/L (22-30); CHLORIDE 108 mmol/L (98-107); CREATININE, serum 0.41 (0.52-1.25); GLUCOSE 126 mg/dL (74-106); POTASSIUM 4.2 mmol/L (3.4-5.0); SODIUM 136 mmol/L (137-145); TOTAL PROTEIN 6.7 gm/dL (6.4-8.2)
[2019-07-12 17:22] LABS: C-REACTIVE PROTEIN < 0.5 mg/dL (0.0-0.9)
[2019-07-12] MEDS ORDERED: FIORICET 325 MG1 TA1 PO (17:27)
--- NOTE | 2019-07-12 18:45 | NUR ---
Pt arrives to floor by wheelchair with ER staff accompanied by family member and 2 small children. Report received from NANCY West in ER. All workup done in ER within normal limits. Pt denies any vaginal bleeding, has occasional cramping but nothing more than usual, and denies LOF. Pt reports feeling good movement. Reports having a headached but always seems to have a headaches when asked what helps her headaches she says nothing. See MAR for meds given in ER. US and toco explained and applied. Safety precautions reviewed. Vital signs obtained. Plan of care reviewed with patient.
[2019-07-12 19:00] VITALS: BP 118/78; PULSE 83; TEMP 98.4
[2019-07-12 20:00] VITALS: BP 129/70; PULSE 94
[2019-07-12 21:00] VITALS: BP 131/72; PULSE 90
--- NOTE | 2019-07-12 21:05 | NUR ---
Category 1 FHR tracing for 2 hours. No uterine activity on tocometer. Pt denies abdominal pain or vaginal bleeding. Discharge instructions reviewed with patient, pt verbalized understanding. Pt seen ambulating off unit with family member.
== END 2019-07-12 21:05 | disposition home or self-care (01) ==
LOC: LDRO 16:19 → COL.ER 16:19 → EDSTATUS 19:11 → LDR 19:56 → LDRO 21:05
PROVIDERS: Emergency Medicine
DX: O26.892 Other specified pregnancy related conditions, second trimester (principal); R55 Syncope and collapse; Z3A.26 26 weeks gestation of pregnancy
CPT/HCPCS: OP; J1200; J2550; J3010; J7030

== ENCOUNTER 2019-07-22 16:16 | Outpatient (CLI) | payer MEDICAID ==
[~2019-07-22] VITALS: Ht 149.9 cm; Wt 59.5 kg
[~2019-07-22 16:16] MED LIST changes: +FIORICET 325 MG1 TA1 PO
[2019-07-22 16:32] VITALS: BP 105/61; PULSE 113; TEMP 98.9
[2019-07-22 17:00] VITALS: BP 105/61; PULSE 113; TEMP 98.9
[2019-07-22 17:30] VITALS: BP 115/65; PULSE 92
== END 2019-07-22 17:30 | disposition home or self-care (01) ==
LOC: LDRO 16:16
DX: Z34.82 Encounter for supervision of other normal pregnancy, second trimester (principal); Z3A.27 27 weeks gestation of pregnancy

== ENCOUNTER 2019-07-26 18:17 | Emergency (ER) | payer MEDICAID ==
[~2019-07-26] VITALS: Ht 149.9 cm; Wt 59.5 kg
[2019-07-26 18:26] VITALS: BP 112/58; TEMP 97.8
[2019-07-26 18:44] LABS: STREP SCREEN NEGATIVE
--- NOTE | 2019-07-26 19:20 | NUR ---
Pt down in ER states she thinks that she has strep throat. Pt states she is 28wks and is due feburary 2nd. States she was having kishor rush contractions yesterday but is not having contractions today. Denies leaking of fluids or vaginal bleeding. Reports good movement. Pt states she has not been drinking or eating a lot due to a sore throat. No contractions recorded on TOCO. Report given to DIAMOND SANDER.
[2019-07-26 20:05] VITALS: PULSE 98
== END 2019-07-26 20:05 | disposition home or self-care (01) ==
LOC: COL.ER 18:17
PROVIDERS: Family Medicine
DX: J02.9 Acute pharyngitis, unspecified (principal); F32.9 Major depressive disorder, single episode, unspecified; J45.909 Unspecified asthma, uncomplicated; Z87.891 Personal history of nicotine dependence

== ENCOUNTER 2019-07-28 18:54 | Emergency (ER) | payer MEDICAID ==
[~2019-07-28] VITALS: Ht 149.9 cm; Wt 62.3 kg
[2019-07-28 19:01] VITALS: BP 111/63; TEMP 98
[2019-07-28 19:42] LABS: COLLECTION METHOD CLEAN CATCH
[2019-07-28 19:49] LABS: MUCOUS Present /lpf; PH 6 (5-8); SQUAMOUS EPITHELIAL 0-2 /hpf; URINE APPEARANCE Hazy; URINE BACTERIA None Seen /hpf; URINE BILIRUBIN Negative (NEGATIVE); URINE BLOOD Negative (NEGATIVE); URINE COLOR Yellow; URINE GLUCOSE Negative (NEGATIVE); URINE KETONE Negative (NEGATIVE); URINE LEUKOCYTE ESTERASE 2+ (NEGATIVE); URINE NITRATE Negative (NEGATIVE); URINE PROTEIN(semi-quant) Negative (NEGATIVE); URINE UROBILINOGEN Negative (NEGATIVE)
[2019-07-28] MEDS ORDERED: OMNICEF 300MG300 MG PO (21:08)
--- NOTE | 2019-07-28 22:18 | NUR ---
FHR BASELINE 140 BPM. ACTIVE BABY ACCELS WITH MOVEMENT.NO CONTRACTIONS. NO DECELS.WNL.
[2019-07-28 22:34] VITALS: PULSE 102
== END 2019-07-28 22:34 | disposition home or self-care (01) ==
LOC: COL.ER 18:54
PROVIDERS: Emergency Medicine
DX: O23.43 Unspecified infection of urinary tract in pregnancy, third trimester (principal); Z3A.28 28 weeks gestation of pregnancy
CPT/HCPCS: A4216; J0696; J2405; J7030

== ENCOUNTER → 2019-08-01 | Outpatient (CLI) | payer MEDICAID ==
[~2019-08-01] MED LIST changes: +OMNICEF 300MG300 MG PO
== END ==
LOC: DIA.ED
DX: O24.419 Gestational diabetes mellitus in pregnancy, unspecified control (principal); Z3A.24 24 weeks gestation of pregnancy
CPT/HCPCS: G0108

== ENCOUNTER → 2019-08-02 | Outpatient (CLI) | payer MEDICAID | LOC: DIA.ED 13:08 | DX: O24.419 Gestational diabetes mellitus in pregnancy, unspecified control (principal); Z3A.23 23 weeks gestation of pregnancy | CPT/HCPCS: G0108 ==

== ENCOUNTER → 2019-08-09 | Outpatient (CLI) | payer MEDICAID ==
[~2019-08-09] MED LIST changes: +ATARAX 25MG25 MG/TAB PO
== END ==
LOC: DIA.ED 11:09
DX: O24.419 Gestational diabetes mellitus in pregnancy, unspecified control (principal); Z3A.24 24 weeks gestation of pregnancy
CPT/HCPCS: G0108

== ENCOUNTER 2019-08-12 19:30 | Emergency (ER) | payer MEDICAID ==
[~2019-08-12] VITALS: Ht 149.9 cm; Wt 63.6 kg
[~2019-08-12 19:30] MED LIST changes: -ATARAX 25MG25 MG/TAB PO
[2019-08-12 19:39] VITALS: TEMP 97.6
[2019-08-12 20:17] LABS: STREP SCREEN NEGATIVE
--- NOTE | 2019-08-12 20:48 | NUR ---
2050 EFM ON FOR 20 MINUTES. HEART RATE 130'S WITH ACCELS NOTED TO 150 WITH MOVEMENT AND GOOD VARIABILITY
[2019-08-12] MEDS ORDERED: ATARAX 25MG25 MG/TAB PO ×2 (21:07)
[2019-08-12 22:30] VITALS: BP 114/68; PULSE 98
== END 2019-08-12 22:30 | disposition home or self-care (01) ==
LOC: COL.ER 19:30
PROVIDERS: Emergency Medicine
DX: O99.513 Diseases of the respiratory system complicating pregnancy, third trimester (principal); O99.343 Other mental disorders complicating pregnancy, third trimester; O24.419 Gestational diabetes mellitus in pregnancy, unspecified control; J06.9 Acute upper respiratory infection, unspecified; J45.909 Unspecified asthma, uncomplicated; F32.9 Major depressive disorder, single episode, unspecified; Z87.891 Personal history of nicotine dependence; Z3A.30 30 weeks gestation of pregnancy

== ENCOUNTER 2019-08-18 18:56 | Outpatient (CLI) | payer MEDICAID ==
[~2019-08-18] VITALS: Ht 152.4 cm; Wt 62.3 kg
[~2019-08-18 18:56] MED LIST changes: +ATARAX 25MG25 MG/TAB PO
--- NOTE | 2019-08-18 19:00 | NUR ---
G7L5. 31-4. Pt ambulatory to LDR 6 with family. Clean gown on. EFM and TOCO explained and applied. Pt states she has been having occasional contractions that she has had to time. Pt also reports spotting yesterday that she has not seen today and states she has not felt fetus move today. Denies leaking of fluids. Denies any complications during this . SVE /-2, ballotable. Assessment and VS taken. Plan of care explained to pt and family who verbalize understanding. Call light within reach.
[2019-08-18 19:11] VITALS: BP 116/67; PULSE 98; TEMP 98.5
[2019-08-18 20:00] VITALS: BP 101/57; PULSE 108
--- NOTE | 2019-08-18 20:15 | NUR ---
SVE unchanged. Plan of care explained to pt. 2020: updated on pts status. Discharge orders received. 2021: Montiors removed and pt updated on discharge orders. Pt to change clothes. 2029: Dischcarge instructions reviewed with pt and family. Denies any questions. Pt ambualtory off unit and home with family.
[2019-08-18 20:22] VITALS: BP 113/58; PULSE 109
[2019-08-18] MEDS ORDERED: PHENERGAN 25 TA25 MG PO (21:10)
[2019-08-18] MEDS ORDERED: FLEXERIL 1010 MG/TAB PO (21:10)
== END 2019-08-18 20:30 | disposition home or self-care (01) ==
LOC: LDRO 18:56 → LDR 19:00 → LDRO 20:30
DX: O36.8130 Decreased fetal movements, third trimester, not applicable or unspecified (principal); O26.853 Spotting complicating pregnancy, third trimester; Z3A.31 31 weeks gestation of pregnancy
CPT/HCPCS: OP

== ENCOUNTER 2019-08-23 11:15 | Outpatient (CLI) | payer MEDICAID ==
[~2019-08-23] VITALS: Ht 152.4 cm; Wt 62.7 kg
[~2019-08-23 11:15] MED LIST changes: +FLEXERIL 1010 MG/TAB PO; +PHENERGAN 25 TA25 MG PO
[2019-08-23 11:24] VITALS: BP 108/64; PULSE 103; TEMP 98.1
--- NOTE | 2019-08-23 11:30 | NUR ---
G7L5 at 32.2 weeks gestation to LDR5 with c/o leaking fluid, abdominal tightening and chest pain. Patient changed into gown and wedged left in bed. EFMs explained and applied. FHR 140 bpm and reactive. Irritable CTX pattern on toco, patient denies cramping but states that her abdomen feels tight "all the time". VSS. SVE closed, amniotrace to vagina remains yellow, no fluid noted with exam. Assessment completed. Patient states that she has chest pain that started yesterday. Water provided. Plan of care reviewed.
--- NOTE | 2019-08-23 11:55 | NUR ---
Dr. Yeboah updated on patient's arrival to unit, c/o leaking of fluid, abdominal tightening, and chest pain. FHR reactive, irritable CTX pattern although patient denies feeling any cramping or contractions, VSS. SVE closed, no fluid noted with exam, and amniotrace negative. Patient states that "can't remember that last time she had something to drink" and has not eaten today. Water offered. Orders to DC for OB after monitoring and PO hydration, if chest pain persists patient to go to the ER to be evaluated.
--- NOTE | 2019-08-23 12:00 | NUR ---
Patient offered a meal, patient declines and states that she "only eats once a day because she doesn't get hungry". Patient encouraged to finish water and to continue drink water throughout the day.
--- NOTE | 2019-08-23 12:30 | NUR ---
Less irritability noted on toco, patient continues to deny feeling cramping or contractions. Patient states that chest pain has subsided and states that she feels like it was just "heartburn". Discharge instructions reviewed with patient and patient discharged home.
== END 2019-08-23 12:35 | disposition home or self-care (01) ==
LOC: LDRO 11:15
DX: O42.913 Preterm premature rupture of membranes, unspecified as to length of time between rupture and onset of labor, third trimester (principal); Z3A.32 32 weeks gestation of pregnancy

== ENCOUNTER 2019-09-03 06:19 | Outpatient (CLI) | payer MEDICAID ==
[~2019-09-03] VITALS: Ht 160 cm; Wt 62.7 kg
[2019-09-03] VITALS (9 sets, daily range): BP systolic 105–123; BP diastolic 56–81; PULSE 106–130; TEMP 98–98.1
--- NOTE | 2019-09-03 06:20 | NUR ---
PATIENT HERE TO LR 3 WITH COMPLAINTS OF CONTRACTIONS. PATIENT ON EFM, VITLAS OBTAINED, SVE BY GISELLE, ASSESMENT COMPLETE. PATIENT DENIES BLEEDING AND LEAKING OF FLUID. PATIENT HERE WITH 11 MO OLD DAUGHTER, AUNT AND BOYFRIEND. PATIENT STATES SHE IS LIVING IN [place]. PATIENT CRYING.
[2019-09-03 07:07] LABS: BASO % 0.2 % (0.0-2.0); EOS # 0.1 (0.0-0.7); EOS % 0.8 % (0-4.0); GRAN # 5.6 (1.4-6.5); GRAN % 64.5 % (42.2-75.2); LYMPH % 23.4 % (20.0-51.0); MEAN CELL VOLUME 75 fl (80.0-100.0); MEAN CORPUSCULAR HGB CONC 30 g/dl (33.0-37.0); MEAN PLATELET VOLUME 11.9 fl (7.4-10.4); MONO # 0.8 (0.1-0.6); MONO % 9.7 % (1.7-9.3); PLATELET COUNT 228 K/mm3 (130-400); RED BLOOD COUNT 4.13 M/mm3 (4.10-5.30); REDCELL DISTRIBUTION WIDTH-CV 16.2 % (11.5-14.5)
[2019-09-03 07:14] LABS: HEMATOCRIT 30.8 % (37.0-47.0); HEMOGLOBIN 9.1 g/dl (12.5-16.0); MEAN CORPUSCULAR HEMOGLOBIN 22 pg (27.0-31.0)
[2019-09-03 07:35] LABS: COLLECTION METHOD CATHETER
[2019-09-03 07:47] LABS: PH 7 (5-8); SQUAMOUS EPITHELIAL None Seen /hpf; URINE APPEARANCE Clear; URINE BACTERIA None Seen /hpf; URINE BILIRUBIN Negative (NEGATIVE); URINE BLOOD Negative (NEGATIVE); URINE COLOR Yellow; URINE GLUCOSE Negative (NEGATIVE); URINE KETONE Trace (NEGATIVE); URINE LEUKOCYTE ESTERASE 2+ (NEGATIVE); URINE NITRATE Negative (NEGATIVE); URINE PROTEIN(semi-quant) Negative (NEGATIVE); URINE RBC 0-2 /hpf; URINE WBC 20-50 /hpf
[2019-09-03 08:33] LABS: TRICYCLIC ANTIDEPRESS URINE NEGATIVE
[2019-09-03] MEDS ORDERED: CEPHALEXIN500 M1 PO (09:10)
== END 2019-09-03 11:05 | disposition home or self-care (01) ==
LOC: LDRO 06:19 → LDR 06:20 → LDRO 11:05
PROVIDERS: Obstetrics & Gynecology
DX: O62.9 Abnormality of forces of labor, unspecified (principal); Z3A.33 33 weeks gestation of pregnancy
CPT/HCPCS: OP; J0702; J2405; J2540; J3475; J7120

== ENCOUNTER 2019-09-04 07:32 | Outpatient (RCR) | payer MEDICAID ==
[~2019-09-04] VITALS: Ht 160 cm; Wt 62.6 kg
--- NOTE | 2019-09-04 06:55 | NUR ---
Pt arrives on unit ambulatory for repeat betamethasone inj. EFM and toco applied. VSS. Admission assessment completed. Inj given in right buttocks. See EMAR. Pt tolerated well. 30-Discharge instructions given. No questions or concerns at this time. Pt leaves unit ambulatory with male support person.
[~2019-09-04 07:32] MED LIST changes: +CEPHALEXIN500 M1 PO
[2019-09-15] MEDS ORDERED: AMOXICILLI125 MG/51 (02:19)
[2019-09-15] MEDS ORDERED: VICODIN 5/300 PO (02:20)
[2019-10-01] MEDS ORDERED: PHENERGAN 25 TA25 MG PO (07:10)
[2019-10-01] MEDS ORDERED: FERROUS SU325 MG/TAB PO (07:13)
[2019-10-01] MEDS ORDERED: FIORICET 325 MG1 TA1 PO (07:16)
[2019-10-02] MEDS ORDERED: IBU600 MG PO (12:51)
[2019-10-24] MEDS ORDERED: FLAGYL500 MG PO (15:27)
[2019-10-24] MEDS ORDERED: ZOLOFT 100MG100 MG PO (15:38)
[2019-10-24] MEDS ORDERED: FERROUSAL325 MG PO (15:39)
[2019-10-24] MEDS ORDERED: PHENERGAN 25 TA25 MG PO (15:39)
[2019-10-31] MEDS ORDERED: LEXAPRO 10MG10 MG PO (12:57)
[2019-11-19] MEDS ORDERED: ZOFRAN ODT4 MG PO (16:16)
[2019-12-09] MEDS ORDERED: LEXAPRO 10MG10 MG PO (20:43)
[2019-12-09] MEDS ORDERED: ZOFRAN ODT4 MG PO (20:54)
== END 2019-12-03 | disposition home or self-care (01) ==
LOC: LDRO
DX: O36.0130 Maternal care for anti-D [Rh] antibodies, third trimester, not applicable or unspecified (principal); Z3A.34 34 weeks gestation of pregnancy
CPT/HCPCS: J0702

== ENCOUNTER 2019-09-15 01:55 | Outpatient (CLI) | payer MEDICAID ==
[~2019-09-15] VITALS: Ht 149.9 cm; Wt 63.6 kg
[2019-09-15 02:13] VITALS: BP 113/65; PULSE 102; TEMP 98.6
[2019-09-15] MEDS ORDERED: AMOXICILLI125 MG/51 (02:19)
[2019-09-15] MEDS ORDERED: VICODIN 5/300 PO (02:20)
--- NOTE | 2019-09-15 02:25 | NUR ---
C/O BACK ACHE AND PELVIC PRESSURE SINC E2130 LAST NIGHT. DENIES URINARY SX.PAIN MEDS NOT HELPING EFM ON - UNABLE TO GIVE UA AT THIS TIME WATER GIVEN
[2019-09-15 02:30] VITALS: BP 113/65; PULSE 102; TEMP 98.6
[2019-09-15 06:00] VITALS: BP 120/69; PULSE 96
[2019-09-15 07:00] VITALS: BP 116/72; PULSE 110; TEMP 98.7
--- NOTE | 2019-09-15 08:37 | NUR ---
0837- EFM and TOCO off. Discharge paperwork given and explained. Pt denies question. Pt up to change into street clothes. 0845- Pt ambulates off unit independently with boyfriend.
== END 2019-09-15 08:45 | disposition home or self-care (01) ==
LOC: LDRO 01:55 → LDR 06:10 → LDRO 08:45 → LDR 08:45
DX: Z34.90 Encounter for supervision of normal pregnancy, unspecified, unspecified trimester (principal)
CPT/HCPCS: OP

== ENCOUNTER 2019-09-18 10:11 | Outpatient (CLI) | payer MEDICAID ==
[~2019-09-18] VITALS: Ht 121.9 cm; Wt 77.3 kg
--- NOTE | 2019-09-18 09:58 | NUR ---
Pt arrives on unit. States contractions from 0672-5015 but has not felt contractions since 0500. Denies LOF, vaginal bleeding and reports GFM. Changed into clean gown. EFM and toco applied. VSS. JEYSONE per Tracey Weir, RN 2-/-2. Dr. Ramsey notified. See physician notification. Admission assessment completed. Updated on POC. No questions or concerns at this time.
[~2019-09-18 10:11] MED LIST changes: +AMOXICILLI125 MG/51; +VICODIN 5/300 PO
[2019-09-18 11:00] VITALS: BP 108/68; PULSE 113; TEMP 98.5
[2019-09-18 11:57] VITALS: BP 120/75; PULSE 110
--- NOTE | 2019-09-18 11:57 | NUR ---
PRACHI unchanged. Roles notified. See physician notification. Taken off monitors. Discharge instruction given. No questions or concerns at this time. Leaves unit ambulatory with mother.
== END 2019-09-18 12:00 | disposition home or self-care (01) ==
LOC: LDRO 10:11 → LDR 10:18 → LDRO 10:18 → LDR 12:00 → LDRO 12:00
DX: O26.893 Other specified pregnancy related conditions, third trimester (principal); Z3A.36 36 weeks gestation of pregnancy
CPT/HCPCS: OP

== ENCOUNTER 2019-10-01 04:26 | Inpatient (IN) | payer MEDICAID ==
[~2019-10-01] VITALS: Ht 152.4 cm; Wt 64.5 kg
[2019-10-01] VITALS (21 sets, daily range): BP systolic 99–137; BP diastolic 57–88; PULSE 72–120; TEMP 97.6–99.3
--- NOTE | 2019-10-01 04:40 | NUR ---
0440- Pt arrived on unit ambulatory escorted by family and with complaints of SROM at 0320 with clear fluid. Pt denies contractions and reports normal movement. EFM and toco monitors started. Vitals signs WNL. Amnio-test positive. SVE by this RN /-2. 0448- Pt off EFM and toco monitors to ambulate to the bathroom. 0450- Spoke with Dr. Yeboah for an update on pt's arrival, SVE, SROM and FHR tracing reviewed. Orders for labor admission received. 0459- Pt sitting HF. Attempts to adjust toco monitors to determine maternal HR tracing. 0507- Pt off EFM and toco monitors to ambulate to the bathroom. 0509- Pt sitting HF. Attempts to adjust toco monitors to determine maternal HR tracing. 0525- IV started and labs obtained per orders. LR infusing. 0528- SPO2 monitor started to determine maternal HR vs FHR. 0536- Pt off EFM and toco monitors to ambulate to the bathroom. 0559- Pt off EFM and toco monitors to ambulate to the bathroom.
[2019-10-01 06:03] LABS: BASO % 0.1 % (0.0-2.0); EOS % 0.4 % (0-4.0); GRAN # 4.5 (1.4-6.5); GRAN % 57.9 % (42.2-75.2); LYMPH # 2.3 (1.2-3.4); LYMPH % 28.9 % (20.0-51.0); MEAN CELL VOLUME 74 fl (80.0-100.0); MEAN CORPUSCULAR HGB CONC 29 g/dl (33.0-37.0); MONO # 0.9 (0.1-0.6); MONO % 11.6 % (1.7-9.3); PLATELET COUNT 277 K/mm3 (130-400); RED BLOOD COUNT 3.97 M/mm3 (4.10-5.30); REDCELL DISTRIBUTION WIDTH-CV 17.9 % (11.5-14.5)
[2019-10-01 06:06] LABS: HEMATOCRIT 29.3 % (37.0-47.0); HEMOGLOBIN 8.5 g/dl (12.5-16.0); MEAN CORPUSCULAR HEMOGLOBIN 21 pg (27.0-31.0)
--- NOTE | 2019-10-01 06:20 | NUR ---
Bedside report received from Sophie CRUZ. 0620: Patient off monitor to void. 0627: Maternal heart rate tracing and monitor adjusted. 0630: SVE-5/80/-2 and plan of care discussed. Patient off monitor to void. 0657: FHR baseline 125-130bpm and tracing a decreasing to 90bpm, patient sitting forward at this time. Patient repositioned and monitor adjusted. FHR tracing in the 130bpm. 0702: Patient off monitor to void. 0710: FHR tracing maternal heart rate and monitor adjusted. FHR tracing at 135bpm. 0715: Patient off monitor to void. 0735: at nurses station and updated on patient status. Dr. Baptiste orders patient to get epidural if she wants and will reassess after epidural. 0740: Patient off monitor to void
[2019-10-01 06:25] LABS: TRICYCLIC ANTIDEPRESS URINE NEGATIVE
[2019-10-01] MEDS ORDERED: PHENERGAN 25 TA25 MG PO (07:10)
[2019-10-01] MEDS ORDERED: FERROUS SU325 MG/TAB PO (07:13)
[2019-10-01] MEDS ORDERED: FIORICET 325 MG1 TA1 PO (07:16)
--- NOTE | 2019-10-01 07:45 | NUR ---
Lucita COREAS called and notified that patient wants epidural. 0808: Patient off monitor to void. 0812: Patient sitting up for epidural and FHR tracing maternal heart rate. Difficulty tracing FHR due to maternal position. Lucita COREAS at bedside for procedure. Plan of care discussed. 0826: Test dose given and patient tolerates well. 0833: Patient repositioned and monitors adjusted. 0840: FHR tracing in the 100bpm and monitor adjusted and FHR tracing at 125-130bpm. Patient states she has to void, bed white placed under patient and voids. Pericare done. Dr. Baptiste at nurses station reviewing FHR strip. 0905: Patient states she is feeling more pressure. SVE-6/80/-2. updated and orders to start pitocin at this time. Patient states she is nauseated and zofran given. 0913: Discussed the plan of pitocin and patient agrees to plan of care. Pitocin started at 2mU per protocol. 0935: Patient comfortable with epidural and starkey catheter placed at this time. Patient tolerate well. 0940: Dr. Baptiste at bedside and assessing patient and FHR strip. SVE per physician-6/80/-2 and AROM of forebag done at this time time with clear fluid noted. 0955: Patient states feeling more pressure. SVE-7/80/[address] Baptiste at nurses station reveiwing FHR and notified.
--- NOTE | 2019-10-01 10:25 | NUR ---
Patient states she is feeling alot of pressure. 1025: SVE-10/100/+[address] Baptiste notified at nurses station. Patient prepped for vaginal delivery. Bed taken apart and pericare done. 1029: Patient begins to push per orders. 1031: Spontaneous vaginal delivery of viable female-head followed by body. bulb syringed and to patient abdomen. Rafael RN assumes care of infant. Cord clamped and cut by . Cord blood obtained. 1036: Spontaneous delivery of placenta and pitocin bolus started per protocol at 333mU. Perineum intact and fundal massage done/firm/bleeding WNL. Patient repositioned and ice pack to perineum. Plan of care discussed.
--- NOTE | 2019-10-01 12:25 | NUR ---
Patient dangles feet on edge of bed, ambulates to bathroom with standby assist. Voids, pericare done, new gown/underwear/pad on. Patient ambulates to new room. Oriented to and whiteboard/ packet gone over. Plan of care discussed.
[2019-10-02 07:57] VITALS: BP 114/62; PULSE 68; TEMP 97.4
--- NOTE | 2019-10-02 10:13 | NUR ---
Initial visit attempt; Patient sleeping, Cop Examiner left card of congratulations for the of her daughter and information regarding the avaiability of spiritual care at [facility].
[2019-10-02] MEDS ORDERED: IBU600 MG PO (12:51)
--- NOTE | 2019-10-02 13:26 | NUR ---
rickial Worker received a social security specialist consult for Edyta Astudillo due to poor social circumstances, history of drug usage and positive UDS for migraine medication. Ms. Astudillo delivered a baby girl at 38.3 weeks. Ms. Astudillo's nurse reported to Well Shooter that Ms. Astudillo is appropriate with the baby. TECHNOLOGY DIRECTOR student met with the patient and her boyfriend, Coleman. TECHNOLOGY DIRECTOR student obtain permission to speak with Coleman present. The ptient currently resides at the [facility] with her three other children. TECHNOLOGY DIRECTOR student contacted [facility] and confirmed this information. The patient reports she has the supplies she needs for the baby. he positive UDS was for barbiturates, which was prescribed for migraines. The baby also had a positive UDS for barbiturates. Cord blood pending. Ms. Astudillo's care history does not show any positive UDS. Well Shooter provided [facility] Resource Guide for Ms. Astudillo. Ms Astudillo has a history of depression and reports she receives mental health services in [place], [place].
== END 2019-10-02 17:25 | disposition home or self-care (01) | DRG 806 ==
LOC: LDRO 04:26 → LDR 04:55 → OB 04:55 → LDR 04:55 → OB 12:45
PROVIDERS: ADMIT Student in an Organized Health Care Education/Training Program
PROC: 10E0XZZ Delivery of Products of Conception, External Approach (ICD-10-PCS; principal; 2019-10-01)
DX: O42.92 Full-term premature rupture of membranes, unspecified as to length of time between rupture and onset of labor (principal); O99.354 Diseases of the nervous system complicating childbirth; Z37.0 Single live birth; O99.02 Anemia complicating childbirth; D64.9 Anemia, unspecified; O99.52 Diseases of the respiratory system complicating childbirth; J45.909 Unspecified asthma, uncomplicated; O99.344 Other mental disorders complicating childbirth; F32.9 Major depressive disorder, single episode, unspecified; F41.9 Anxiety disorder, unspecified; G43.909 Migraine, unspecified, not intractable, without status migrainosus; Z3A.38 38 weeks gestation of pregnancy; Z28.20 Immunization not carried out because of patient decision for unspecified reason
CPT/HCPCS: J1200; J2405; J2590; J7120

== ENCOUNTER → 2019-10-23 15:15 | Outpatient (CLI) | payer MEDICAID | END | disposition home or self-care (01) | LOC: COL.ER 11:00 | DX: Z72.9 Problem related to lifestyle, unspecified (principal) | CPT/HCPCS: J0696 ==

== ENCOUNTER 2019-10-23 16:01 | Emergency (ER) | payer MEDICAID ==
[~2019-10-23] VITALS: Ht 149.9 cm; Wt 57.7 kg
[~2019-10-23 16:01] MED LIST changes: -FERROUSAL325 MG PO; -FLAGYL500 MG PO; -ZOLOFT 100MG100 MG PO
[2019-10-23 16:40] VITALS: TEMP 98.3
[2019-10-23 18:26] VITALS: BP 115/73; PULSE 110
[2019-10-24] MEDS ORDERED: FLAGYL500 MG PO (15:27)
[2019-10-24] MEDS ORDERED: ZOLOFT 100MG100 MG PO (15:38)
[2019-10-24] MEDS ORDERED: PHENERGAN 25 TA25 MG PO (15:39)
[2019-10-24] MEDS ORDERED: FERROUSAL325 MG PO (15:39)
== END 2019-10-23 18:26 | disposition home or self-care (01) ==
LOC: COL.ER 16:01
DX: S43.101A Unspecified dislocation of right acromioclavicular joint, initial encounter (principal); T76.21XA Adult sexual abuse, suspected, initial encounter; Y92.009 Unspecified place in unspecified non-institutional (private) residence as the place of occurrence of the external cause

== ENCOUNTER → 2019-10-23 | Outpatient (REF) ==
[~2019-10-23] MED LIST changes: +FERROUS SU325 MG/TAB PO; +FERROUSAL325 MG PO; +FLAGYL500 MG PO; +ZOLOFT 100MG100 MG PO
== END ==
LOC: COL.ER 10:33
DX: T74.21XA Adult sexual abuse, confirmed, initial encounter (principal); M25.511 Pain in right shoulder
CPT/HCPCS: J0696

== ENCOUNTER → 2019-10-23 | Emergency (ER) | payer MEDICAID ==
[~2019-10-23] VITALS: Ht 149.9 cm; Wt 57.7 kg
[2019-10-23 10:08] VITALS: BP 125/76; PULSE 108; TEMP 97.5
== END ==
LOC: COL.ER 09:28
DX: T74.21XA Adult sexual abuse, confirmed, initial encounter (principal)

== ENCOUNTER 2019-10-24 13:48 | Emergency (ER) | payer MEDICAID ==
[~2019-10-24] VITALS: Ht 149.9 cm; Wt 57.7 kg
[2019-10-24 14:03] VITALS: BP 112/72; TEMP 98
[2019-10-24] MEDS ORDERED: FLAGYL500 MG PO (15:27)
[2019-10-24] MEDS ORDERED: ZOLOFT 100MG100 MG PO (15:38)
[2019-10-24] MEDS ORDERED: PHENERGAN 25 TA25 MG PO (15:39)
[2019-10-24] MEDS ORDERED: FERROUSAL325 MG PO (15:39)
[2019-10-24 16:10] VITALS: PULSE 88
== END 2019-10-24 16:10 | disposition home or self-care (01) ==
LOC: COL.ER 13:48
DX: S10.93XA Contusion of unspecified part of neck, initial encounter (principal); T74.21XA Adult sexual abuse, confirmed, initial encounter

== ENCOUNTER 2019-10-31 12:25 | Emergency (ER) | payer MEDICAID ==
[~2019-10-31] VITALS: Ht 149.9 cm; Wt 55.0 kg
[~2019-10-31 12:25] MED LIST changes: +FERROUSAL325 MG PO; +FLAGYL500 MG PO; +ZOLOFT 100MG100 MG PO
[2019-10-31] MEDS ORDERED: LEXAPRO 10MG10 MG PO (12:57)
[2019-10-31 13:47] LABS: COLLECTION METHOD CLEAN CATCH
[2019-10-31 13:51] LABS: BASO % 0.2 % (0.0-2.0); EOS # 0.1 (0.0-0.7); EOS % 1.4 % (0-4.0); GRAN # 1.7 (1.4-6.5); GRAN % 39.4 % (42.2-75.2); HEMATOCRIT 41.5 % (37.0-47.0); LYMPH # 2.2 (1.2-3.4); LYMPH % 49.5 % (20.0-51.0); MEAN CELL VOLUME 79 fl (80.0-100.0); MEAN CORPUSCULAR HEMOGLOBIN 23 pg (27.0-31.0); MEAN CORPUSCULAR HGB CONC 29 g/dl (33.0-37.0); MEAN PLATELET VOLUME 10.8 fl (7.4-10.4); MONO # 0.4 (0.1-0.6); MONO % 9.3 % (1.7-9.3); PLATELET COUNT 271 K/mm3 (130-400); RED BLOOD COUNT 5.24 M/mm3 (4.10-5.30); REDCELL DISTRIBUTION WIDTH-CV 23.8 % (11.5-14.5)
[2019-10-31 14:02] LABS: MUCOUS Present /lpf; PH 6 (5-8); URINE APPEARANCE Clear; URINE BACTERIA None Seen /hpf; URINE BILIRUBIN Negative (NEGATIVE); URINE BLOOD Negative (NEGATIVE); URINE COLOR Yellow; URINE GLUCOSE Negative (NEGATIVE); URINE KETONE Negative (NEGATIVE); URINE LEUKOCYTE ESTERASE Negative (NEGATIVE); URINE NITRATE Negative (NEGATIVE); URINE PROTEIN(semi-quant) Negative (NEGATIVE); URINE RBC 0-2 /hpf; URINE UROBILINOGEN Negative (NEGATIVE)
[2019-10-31 14:07] LABS: ALANINE AMINOTRANSFERASE 25 U/L (9-52); ALBUMIN 4.1 gm/dL (3.5-5.0); ALKALINE PHOSPHATASE 83 U/L (50-136); ANION GAP 5 mmol/L (7-16); AST,SGOT 35 U/L (15-37); BILIRUBIN,TOTAL 0.5 mg/dL (0.0-1.0); BLOOD UREA NITROGEN 14 mg/dL (7-17); CARBON DIOXIDE 26 mmol/L (22-30); CHLORIDE 107 mmol/L (98-107); CREATININE, serum 0.53 (0.52-1.25); GLUCOSE 96 mg/dL (74-106); SODIUM 138 mmol/L (137-145); TOTAL PROTEIN 7.4 gm/dL (6.4-8.2)
[2019-10-31 14:09] LABS: C-REACTIVE PROTEIN < 0.5 mg/dL (0.0-0.9)
[2019-10-31 14:40] VITALS: BP 104/58; PULSE 77; TEMP 98.2
== END 2019-10-31 14:50 | disposition home or self-care (01) ==
LOC: COL.ER 12:25
PROVIDERS: Physician Assistant
DX: R07.89 Other chest pain (principal); R10.9 Unspecified abdominal pain

== ENCOUNTER 2019-11-19 15:07 | Emergency (ER) | payer MEDICAID ==
[~2019-11-19] VITALS: Ht 149.9 cm; Wt 55.5 kg
[2019-11-19 15:09] VITALS: BP 121/69; TEMP 98.4
[2019-11-19 15:37] LABS: BASO % 0.2 % (0.0-2.0); EOS # 0.1 (0.0-0.7); EOS % 1.5 % (0-4.0); GRAN # 2.2 (1.4-6.5); GRAN % 48.6 % (42.2-75.2); HEMATOCRIT 39.4 % (37.0-47.0); HEMOGLOBIN 11.9 g/dl (12.5-16.0); LYMPH # 1.8 (1.2-3.4); LYMPH % 38.7 % (20.0-51.0); MEAN CELL VOLUME 81 fl (80.0-100.0); MEAN CORPUSCULAR HEMOGLOBIN 24 pg (27.0-31.0); MEAN CORPUSCULAR HGB CONC 30 g/dl (33.0-37.0); MONO # 0.5 (0.1-0.6); MONO % 10.6 % (1.7-9.3); PLATELET COUNT 242 K/mm3 (130-400); RED BLOOD COUNT 4.87 M/mm3 (4.10-5.30); REDCELL DISTRIBUTION WIDTH-CV 22.6 % (11.5-14.5)
[2019-11-19 15:44] LABS: ALBUMIN 4.2 gm/dL (3.5-5.0); BILIRUBIN,TOTAL 0.5 mg/dL (0.0-1.0); CREATININE, serum 0.68 (0.52-1.25); POTASSIUM 3.9 mmol/L (3.4-5.0); TOTAL PROTEIN 7.3 gm/dL (6.4-8.2)
[2019-11-19] MEDS ORDERED: ZOFRAN ODT4 MG PO (16:16)
[2019-11-19 17:21] VITALS: PULSE 68
== END 2019-11-19 17:19 | disposition home or self-care (01) ==
LOC: COL.ER 15:07
PROVIDERS: Nurse Practitioner Primary Care
DX: A08.4 Viral intestinal infection, unspecified (principal)
CPT/HCPCS: J2405; J7030

== ENCOUNTER 2021-09-17 13:37 | Outpatient (CLI) | payer MEDICAID ==
[~2021-09-17 13:37] MED LIST changes: +ZOFRAN ODT4 MG PO
--- NOTE | 2021-09-17 13:40 | NUR ---
1340- Pt arrives on unit ambulatory with complains of cramping, spotting, losing her muccus plug, and right flank pain. Pt into bathroom to change into gown and provide urine sample. 1344- Pt into bed, state she isnt able to void. EFM and TOCO on, adjusted until tracing. VSS. SVE by this RN, closed, outter os 1cm. Assessment completed without records. Pt states she received care in [place], [place] but has moved to [place] and has not established care there. She states her due date is 11/30/2021. [id number]. SAB x1 with D&C after. Denies health problems or surgeries. She is adopting the baby out. She has custody of "some" of her children but others "live with family". Pt states the monitor belts are hurting her right flank area, adjusted by this RN, having difficulty monitoting FHR due to maternal habitus and . 1415- Pt updated on MD orders, water pitcher provided and Pt encouraged to drink. Pt complains of bands hurting her back, adjusted again.
[2021-09-17 14:16] VITALS: BP 103/64; PULSE 120; TEMP 98.2
[2021-09-17 15:02] LABS: BASO % 0.1 % (0.0-2.0); EOS % 0.6 % (0.0-4.0); GRAN # 4.7 K/mm3 (1.4-6.5); GRAN % 70.3 % (42.2-75.2); HEMATOCRIT 31.9 % (37.0-47.0); HEMOGLOBIN 10.1 g/dl (12.5-16.0); LYMPH # 1.4 K/mm3 (1.2-3.4); LYMPH % 20.7 % (20.0-51.0); MEAN CELL VOLUME 86 fl (80.0-100.0); MEAN CORPUSCULAR HEMOGLOBIN 27 pg (27-31); MEAN CORPUSCULAR HGB CONC 32 g/dl (33.0-37.0); MEAN PLATELET VOLUME 12.3 fl (7.4-10.4); MONO # 0.5 K/mm3 (0.1-0.6); MONO % 7.6 % (1.7-9.3); PLATELET COUNT 199 K/mm3 (130-400); RED BLOOD COUNT 3.73 M/mm3 (4.10-5.30); REDCELL DISTRIBUTION WIDTH-CV 14.3 % (11.5-14.5)
[2021-09-17 15:15] VITALS: BP 104/62; PULSE 88
[2021-09-17 15:25] LABS: ALBUMIN 2.5 gm/dL (3.5-5.0); BILIRUBIN,TOTAL 0.3 mg/dL (0.2-1.2); CALCIUM 8.1 mg/dL (8.4-10.2); CREATININE, serum 0.57 mg/dL (0.57-1.11); POTASSIUM 3.8 mmol/L (3.5-4.5); TOTAL PROTEIN 6.2 gm/dL (6.2-8.1)
--- NOTE | 2021-09-17 15:37 | NUR ---
1430 PO HYDRATE, THIS NURSE ASKS PATIENT TO URINATE IN CUP FOR A UA. PATIENT STATES THAT SGE DOES NOT HAVE TO PEE AND WONT HAVE TOO. PATIENT DOES NOT WANT TO WAIT FOR LAB RESULTS TO COME BACK JUST WANTS TO LEAVE. DOES NOT WANT TYLNOL OFFERED TO PATIETNT FOR DISCOMFORT. ENCOURAGED PATIENT TO WAIT UNTIL I CAN TALK WITH DOCTOR. 1510 DR GALINDO CALLED AND UPDATED WITH CBC, ORDERS TO SEND PATIENT HOME IF CMP IS OK.
--- NOTE | 2021-09-17 16:13 | NUR ---
1515 PATIENT RESUSES A RECHECK SVE, AND TO GIVE A UA. PATIENT WANTS TO JUST GO HOME. ALL DISCHARGE INSTRUCTIONS GIVEN TO PATIENT AND VERBAL UNDERSTANIDN
== END 2021-09-17 15:30 | disposition home or self-care (01) ==
LOC: LDRO 13:37 → LDR 13:40 → LDRO 15:30
PROVIDERS: Obstetrics & Gynecology
DX: O26.893 Other specified pregnancy related conditions, third trimester (principal); R25.2 Cramp and spasm; Z3A.29 29 weeks gestation of pregnancy
CPT/HCPCS: OP

== ENCOUNTER 2022-11-24 19:26 | Outpatient (CLI) | payer MEDICAID ==
[~2022-11-24] VITALS: Ht 152.4 cm; Wt 64.5 kg
[~2022-11-24 19:26] MED LIST changes: +ATHLETE'S FOOT1% TP
--- NOTE | 2022-11-24 19:45 | NUR ---
G10L8 at 27 weeks and 1 day arrives to unit ambulatory with complaint of contractions and leakage of fluid. Pt with a history of placenta previa at 23 weeks that has not been resolved. Pt states having intercourse 4 days ago and has a small amount of spotting. States she feels leakage when she goes up and down stairs but it does not smell like urine. Reports she feels cramping/contractions all day but infrequently and has not timed them. Reports good movement. Denies headaches, blurry vision, or RUQ pain. Clean gown on, oriented to room, call light within reach, bed in low and locked position. US and toco explained and applied. Vitals obtained. Admission assessment started. SVE deferred due to placenta previa Amnitrace negative Pt states her main concern was the leakage of fluid.
[2022-11-24 20:00] VITALS: BP 109/56; PULSE 95; TEMP 98.2
--- NOTE | 2022-11-24 20:20 | NUR ---
1 contraction noted on toco and reported by pt, RN at bedside palpates as mild.
--- NOTE | 2022-11-24 20:20 | NUR ---
This RN to bedside to review plan of care with patient. Physician wants to monitor for an hour and then ok to discharge home if no changes. Pt states she wants to go home now.
[2022-11-24] MEDS ORDERED: PRENATAL TABLET PO (20:30)
[2022-11-24] MEDS ORDERED: ZOFRAN ODT4 MG PO (20:31)
[2022-11-24 20:35] VITALS: BP 105/58; PULSE 92
--- NOTE | 2022-11-24 20:35 | NUR ---
Reviewed discharge plan with patient, verbalized understanding. Pt seen ambulating off unit in stable condition.
== END 2022-11-24 20:35 | disposition home or self-care (01) ==
LOC: LDRO 19:26
DX: O42.912 Preterm premature rupture of membranes, unspecified as to length of time between rupture and onset of labor, second trimester (principal); Z3A.27 27 weeks gestation of pregnancy

== ENCOUNTER 2023-06-15 12:22 | Emergency (ER) | payer MEDICAID ==
[~2023-06-15] VITALS: Ht 149.9 cm; Wt 59.1 kg
[~2023-06-15 12:22] MED LIST changes: +MOTRIN 800800 MG/TAB PO; +PRENATAL TABLET PO; +ROXICODONE 55 MG/TAB PO; +UNISOM25 MG PO
[2023-06-15 12:28] VITALS: TEMP 98
[2023-06-15 13:01] LABS: COLLECTION METHOD CLEAN CATCH
[2023-06-15 13:33] LABS: MUCOUS Present (NOT PRESENT); PH 5.5 (5.0-8.5); SQUAMOUS EPITHELIAL 0-2 /hpf (0-10); URINE APPEARANCE Clear (CLEAR/HAZY); URINE BACTERIA None Seen /hpf (NONE SEEN); URINE BLOOD Negative (NEGATIVE); URINE COLOR Yellow (YELLOW); URINE GLUCOSE Negative (NEGATIVE); URINE KETONE Negative (NEGATIVE); URINE NITRATE Negative (NEGATIVE); URINE PROTEIN(semi-quant) Negative (NEGATIVE); URINE RBC 0-2 /hpf (0-2); URINE UROBILINOGEN 0.2 E.U/dL (0.2-1.0)
[2023-06-15 13:46] VITALS: BP 124/70; PULSE 76
== END 2023-06-15 13:47 | disposition home or self-care (01) ==
LOC: COL.ER 12:22
PROVIDERS: Nurse Practitioner
DX: N92.6 Irregular menstruation, unspecified (principal); R11.2 Nausea with vomiting, unspecified; F17.210 Nicotine dependence, cigarettes, uncomplicated; Z28.310 Unvaccinated for COVID-19

== ENCOUNTER 2023-06-16 16:04 | Emergency (ER) | payer MEDICAID ==
[~2023-06-16] VITALS: Ht 149.9 cm; Wt 59.1 kg
[2023-06-16 16:09] VITALS: TEMP 97.8
[2023-06-16 16:34] LABS: BASO % 0.2 % (0.0-2.0); EOS # 0.1 K/mm3 (0.0-0.7); EOS % 1.2 % (0.0-4.0); GRAN # 3.3 K/mm3 (1.4-6.5); GRAN % 56.4 % (42.2-75.2); HEMATOCRIT 38.4 % (37.0-47.0); HEMOGLOBIN 12.6 g/dl (12.5-16.0); LYMPH # 1.9 K/mm3 (1.2-3.4); LYMPH % 32.4 % (20.0-51.0); MEAN CELL VOLUME 84 fl (80.0-100.0); MEAN CORPUSCULAR HEMOGLOBIN 27 pg (27-31); MEAN CORPUSCULAR HGB CONC 33 g/dl (33.0-37.0); MEAN PLATELET VOLUME 12.2 fl (7.4-10.4); MONO # 0.6 K/mm3 (0.1-0.6); MONO % 9.5 % (1.7-9.3); PLATELET COUNT 261 K/mm3 (130-400); REDCELL DISTRIBUTION WIDTH-CV 14.5 % (11.5-14.5)
[2023-06-16 16:59] LABS: BILIRUBIN,TOTAL 0.3 mg/dL (0.2-1.2); CREATININE, serum 0.79 mg/dL (0.57-1.11); POTASSIUM 4.2 mmol/L (3.5-4.5); TOTAL PROTEIN 7.6 gm/dL (6.2-8.1)
[2023-06-16 18:26] VITALS: BP 113/68; PULSE 103
== END 2023-06-16 18:26 | disposition home or self-care (01) ==
LOC: COL.ER 16:04
PROVIDERS: Nurse Practitioner
DX: O20.0 Threatened abortion (principal); O26.891 Other specified pregnancy related conditions, first trimester; R10.2 Pelvic and perineal pain; O99.331 Smoking (tobacco) complicating pregnancy, first trimester; F17.200 Nicotine dependence, unspecified, uncomplicated; Z3A.01 Less than 8 weeks gestation of pregnancy; Z28.310 Unvaccinated for COVID-19

== ENCOUNTER 2023-06-27 10:25 | Observation (INO) | payer MEDICAID ==
[~2023-06-27] VITALS: Ht 149.9 cm; Wt 59.1 kg
[2023-06-27 11:09] LABS: BASO % 0.2 % (0.0-2.0); EOS # 0.1 K/mm3 (0.0-0.7); EOS % 0.9 % (0.0-4.0); GRAN % 55.9 % (42.2-75.2); HEMATOCRIT 40.5 % (37.0-47.0); HEMOGLOBIN 13.2 g/dl (12.5-16.0); LYMPH # 1.9 K/mm3 (1.2-3.4); MEAN CELL VOLUME 85 fl (80.0-100.0); MEAN CORPUSCULAR HEMOGLOBIN 28 pg (27-31); MEAN CORPUSCULAR HGB CONC 33 g/dl (33.0-37.0); MEAN PLATELET VOLUME 12.5 fl (7.4-10.4); MONO # 0.4 K/mm3 (0.1-0.6); MONO % 7.6 % (1.7-9.3); PLATELET COUNT 243 K/mm3 (130-400); RED BLOOD COUNT 4.76 M/mm3 (4.10-5.30); REDCELL DISTRIBUTION WIDTH-CV 13.4 % (11.5-14.5)
[2023-06-27 11:26] LABS: TOTAL PROTEIN 7.7 gm/dL (6.2-8.1)
[2023-06-27 11:28] LABS: ALBUMIN 3.9 gm/dL (3.5-5.0); BILIRUBIN,TOTAL 0.4 mg/dL (0.2-1.2); CALCIUM 9.3 mg/dL (8.4-10.2); CREATININE, serum 0.68 mg/dL (0.57-1.11)
--- NOTE | 2023-06-27 15:03 | NUR ---
RECEIVED REPORT FROM POSTOP RN. PT STABLE AND COMING OVER FOR RECOVERY.
--- NOTE | 2023-06-27 15:07 | NUR ---
PT ON UNIT, IN ROOM, COMFORTABLE IN BED. VORB FROM DR. ARNOLD TO D/C AFTER EATING, DRINKING, AND ABLE TO VOID. PT REQUEST SANDWICH AND WATER AT THIS TIME. RN PROVIDED.
[2023-06-27 15:30] VITALS: BP 105/61; PULSE 74; TEMP 98.3
[2023-06-27 15:31] VITALS: BP 104/61; PULSE 85; TEMP 98
--- NOTE | 2023-06-27 16:52 | NUR ---
D/C INSTRUCTIONS REVIEWED. IVS REMOVED. PT READY TO DC.
== END 2023-06-27 16:54 | disposition home or self-care (01) ==
LOC: COL.ER 10:25 → OB 15:01
PROVIDERS: Emergency Medicine; ADMIT Obstetrics & Gynecology
DX: R10.2 Pelvic and perineal pain (principal); R89.1 Abnormal level of hormones in specimens from other organs, systems and tissues; Z87.891 Personal history of nicotine dependence
CPT/HCPCS: J1170; J2704; J3010

== ENCOUNTER → 2023-09-08 | Outpatient (CLI) | payer MEDICAID | LOC: MC.RAD 11:40 | DX: N63.21 Unspecified lump in the left breast, upper outer quadrant (principal) ==

== ENCOUNTER 2023-10-08 08:18 | Emergency (ER) | payer MEDICAID ==
[~2023-10-08] VITALS: Ht 149.9 cm; Wt 56.8 kg
[2023-10-08 08:24] VITALS: TEMP 97.9
[2023-10-08] MEDS ORDERED: droPERidol 2.5 MG/ML 2 ML VIAL IV ONE (08:45)
[2023-10-08] MEDS ORDERED: LR 1,000 ML IV ONE (08:45)
[2023-10-08] MEDS ORDERED: Acetaminophen 500 MG TAB PO ONE (08:45)
[2023-10-08 08:48] LABS: BASO % 0.2 % (0.0-2.0); GRAN % 77.2 % (42.2-75.2); HEMATOCRIT 40.8 % (37.0-47.0); HEMOGLOBIN 13.3 g/dl (12.5-16.0); LYMPH % 15.8 % (20.0-51.0); MEAN CELL VOLUME 82 fl (80.0-100.0); MEAN CORPUSCULAR HEMOGLOBIN 27 pg (27-31); MEAN CORPUSCULAR HGB CONC 33 g/dl (33.0-37.0); MEAN PLATELET VOLUME 12.1 fl (7.4-10.4); MONO # 0.4 K/mm3 (0.1-0.6); MONO % 6.5 % (1.7-9.3); PLATELET COUNT 261 K/mm3 (130-400); REDCELL DISTRIBUTION WIDTH-CV 13.9 % (11.5-14.5)
[2023-10-08 09:05] LABS: ALBUMIN 4.2 gm/dL (3.5-5.0); BILIRUBIN,TOTAL 0.7 mg/dL (0.2-1.2); CALCIUM 9.5 mg/dL (8.4-10.2); CREATININE, serum 0.71 mg/dL (0.57-1.11); POTASSIUM 3.3 mmol/L (3.5-4.5); TOTAL PROTEIN 7.9 gm/dL (6.2-8.1)
[2023-10-08] MEDS ORDERED: PHENERGAN25 MG RC (09:31)
[2023-10-08] MEDS ORDERED: ZOFRAN ODT4 MG PO (09:31)
[2023-10-08 09:46] VITALS: BP 126/83; PULSE 86
== END 2023-10-08 09:46 | disposition home or self-care (01) ==
LOC: COL.ER 08:18
PROVIDERS: Emergency Medicine
DX: R11.2 Nausea with vomiting, unspecified (principal); R79.89 Other specified abnormal findings of blood chemistry
CPT/HCPCS: J1790; J7120

== ENCOUNTER 2023-10-10 14:14 | Emergency (ER) | payer MEDICAID ==
[~2023-10-10] VITALS: Ht 149.9 cm; Wt 54.5 kg
[~2023-10-10 14:14] MED LIST changes: +PHENERGAN25 MG RC
[2023-10-10 14:21] VITALS: TEMP 98.6
[2023-10-10] MEDS ORDERED: Ondansetron 4 MG/2 ML VIAL IV PRN (14:45)
[2023-10-10] MEDS ORDERED: NS 1,000 ML IV ONE (14:45)
[2023-10-10] MEDS ORDERED: Morphine 4 MG/ML VIAL IV PRN (14:45)
[2023-10-10 14:56] LABS: BASO % 0.3 % (0.0-2.0); EOS % 0.1 % (0.0-4.0); GRAN # 5.4 K/mm3 (1.4-6.5); GRAN % 80.5 % (42.2-75.2); HEMATOCRIT 40.2 % (37.0-47.0); HEMOGLOBIN 12.7 g/dl (12.5-16.0); LYMPH # 0.8 K/mm3 (1.2-3.4); LYMPH % 12.4 % (20.0-51.0); MEAN CELL VOLUME 83 fl (80.0-100.0); MEAN CORPUSCULAR HEMOGLOBIN 26 pg (27-31); MEAN CORPUSCULAR HGB CONC 32 g/dl (33.0-37.0); MEAN PLATELET VOLUME 12.7 fl (7.4-10.4); MONO # 0.4 K/mm3 (0.1-0.6); MONO % 6.1 % (1.7-9.3); PLATELET COUNT 245 K/mm3 (130-400); RED BLOOD COUNT 4.85 M/mm3 (4.10-5.30); REDCELL DISTRIBUTION WIDTH-CV 13.3 % (11.5-14.5)
[2023-10-10 15:15] LABS: CALCIUM 9.2 mg/dL (8.4-10.2); CREATININE, serum 0.66 mg/dL (0.57-1.11); POTASSIUM 3.2 mmol/L (3.5-4.5); TOTAL PROTEIN 7.4 gm/dL (6.2-8.1)
[2023-10-10] MEDS ORDERED: droPERidol 2.5 MG/ML 2 ML VIAL IV ONE (15:15)
[2023-10-10] MEDS ORDERED: PHENERGAN 25 TA25 MG PO (15:22)
[2023-10-10 15:24] LABS: BILIRUBIN,TOTAL 0.7 mg/dL (0.2-1.2)
[2023-10-10] MEDS ORDERED: Iohexol 300 - 100 ML VIAL IV ONE (15:51)
[2023-10-10] MEDS ORDERED: NS 100 ML IV SCH (15:52)
[2023-10-10 16:24] VITALS: BP 132/86; PULSE 89
== END 2023-10-10 16:26 | disposition home or self-care (01) ==
LOC: COL.ER 14:14
PROVIDERS: Personal Emergency Response Attendant
DX: K22.6 Gastro-esophageal laceration-hemorrhage syndrome (principal)
CPT/HCPCS: J1790; J2270; J2405; J7030; Q9967

== ENCOUNTER 2023-12-07 14:53 | Emergency (ER) | payer SELFPAY ==
[~2023-12-07] VITALS: Ht 149.9 cm; Wt 53.2 kg
[~2023-12-07 14:53] MED LIST changes: +PROTONIX 40MG T40 MG PO
[2023-12-07 14:58] VITALS: TEMP 97.3
[2023-12-07] MEDS ORDERED: Naproxen 250 MG TAB PO ONE (15:30)
[2023-12-07] MEDS ORDERED: Cyclobenzaprine 10 MG TAB PO ONE (15:30)
[2023-12-07] MEDS ORDERED: NAPROSYN500 MG PO (15:52)
[2023-12-07] MEDS ORDERED: FLEXERIL 1010 MG/TAB PO (15:52)
[2023-12-07 16:45] LABS: HIV 1/2 Antibodies Non-Reactive; HIV-1p24 Antigen Non-Reactive
[2023-12-07 17:20] VITALS: BP 108/81; PULSE 90
[2023-12-07 22:28] LABS: HEPATITIS B SURFACE ANTIBODY <2.0 (()); HEPATITIS C VIRUS ANTIBODY Negative (Negative)
== END 2023-12-07 17:21 | disposition home or self-care (01) ==
LOC: COL.ER 14:53
PROVIDERS: Emergency Medicine
DX: M25.512 Pain in left shoulder (principal); Z87.891 Personal history of nicotine dependence; Z87.828 Personal history of other (healed) physical injury and trauma; Y04.0XXA Assault by unarmed brawl or fight, initial encounter